=== PATIENT | female | born 1955 | race Caucasian/White ===

== ENCOUNTER → 2016-08-10 09:40 | Outpatient (CLI) | payer MEDICAID ==
[2015-05-15 11:39] VITALS: BMI 27.9
[~2016-08-10 09:40] MED LIST: ALBUTEROL2.5 MG/3 M INH; CLEOCIN HCL300 MG PO; DIFLUCAN100 MG PO; DULERA 100 MCG8.8 GM INH; FLUTICASONE PRO16 GM NS; HYDROCODONE-APA1 TAB PO; K-DUR20 MEQ PO; MUCINEX DM ER1 EAC1 PO; NEXIUM40 MG PO; OMNICEF300 MG PO; PRILOSEC20 MG PO; REGLAN10 MG PO; STERAPRED 5MG 125 MG PO; SYNTHROID112 MCG PO; TESSALON PERLE100 MG PO; ULTRAM50 MG PO; VALIUM10 MG PO; VENTOLIN HFA18 GM INH
== END | disposition home or self-care (01) ==
LOC: D.MRI 08-09 13:00
DX: M17.11 Unilateral primary osteoarthritis, right knee (principal)

== ENCOUNTER 2016-12-02 09:39 | Inpatient (IN) | payer MEDICAID ==
[~2016-12-02] VITALS: Ht 180.3 cm; Wt 104.8 kg
[2016-12-02 10:16] LABS: BASOPHILS 0.5 % (0-2); EOSINOPHILS 9.9 % (0-7); HEMATOCRIT 36.9 % (36.0-48.0); HEMOGLOBIN 11.4 g/dL (12-16); IMMATURE GRANULOCYTES 0.2 % (0-5); LYMPHOCYTES 17.3 % (15-50); MCH 30.2 pg (26.0-34.0); MCHC 30.9 g/dL (31.0-37.0); MCV 97.9 fL (80.0-100.0); MONOCYTES 5.5 % (2-11); NEUTROPHILS 66.6 % (40-80); PLATELET COUNT 366 10x3/uL (130-400); RBC 3.77 10x6/uL (4.00-5.40); RDW 14.1 % (11.5-14.5)
[2016-12-02 10:39] LABS: ALBUMIN 3.5 g/dL (3.4-5.0); ALKALINE PHOSPHATASE 69 U/L (46-116); ALT (SGPT) 14 U/L (10-68); CALC OSMOLALITY 277 mosm/kg (275-300); CALCIUM 9.5 mg/dL (8.5-10.1); CARBON DIOXIDE 32.1 mmol/L (21.0-32.0); CHLORIDE - SERUM 102 mmol/L (98-107); GLUCOSE 108 mg/dL (74-106); POTASSIUM - SERUM 4.1 mmol/L (3.5-5.1); PROTEIN - SERUM 7.7 g/dL (6.4-8.2); SODIUM 140 mmol/L (136-145); UREA NITROGEN 6 mg/dL (7-18); eGFR NON AFRICAN AMERICAN 60 mL/min (90-120)
[2016-12-02 10:42] LABS: TROPONIN-I < 0.017 ng/mL (0.000-0.060)
[2016-12-02] MEDS ORDERED: PHENERGAN25 M1 PO (13:33)
[2016-12-02 13:46] VITALS: BP 143/84; BMI 27.9
--- NOTE | 2016-12-02 15:47 | NUR ---
NOIFIED DREA BRANTELY OF PATIENT'S OXYGEN SATURATION BETWEEN 88%-91% ON 5L/MIN OXYGEN NASAL CANNULA. SEE NEW ORDERS.
[2016-12-02 16:00] VITALS: BP 141/76
--- NOTE | 2016-12-02 18:39 | NUR ---
PATIENT WOKE UP, STATED "I CAN'T BREATH." LEANING FORWARD IN THE BED, AUDIBLE EXPIRATORY WHEEZES, COUGHING, INCREASED RESPIRATIONS. OXYGEN LEVEL IS 94% ON 10L OXYMIZER. PAGED RESPIRATORY. PATIENT STATED "THIS HAPPENS EVERY TIME I FALL ASLEEP."
[2016-12-02 19:00] VITALS: BP 141/123
--- NOTE | 2016-12-02 19:46 | NUR ---
ASSESSMENT COMPLETE. UP WITH ASSIST TO BR.
--- NOTE | 2016-12-02 20:55 | NUR ---
HS MEDS GIVEN WITH FRESH ICE WATER. NORCO 1 TAB GIVEN FOR C/O PAIN.
--- NOTE | 2016-12-02 23:04 | NUR ---
UP WITH BENCH MACHINE OPERATOR TO BR.
[2016-12-03] VITALS: BP 150/86
--- NOTE | 2016-12-03 01:13 | NUR ---
NORCO 1 TAB GIVEN FOR C/O PAIN, PT REFUSING TO WEAR BIPAP, STATES THAT IT MAKES HER FEEL CLAUSTROPHOBIC. EXPLAINED TO PT THE IMPORTANCE OF KEEPING THE BIPAP ON, HOW IT WILL HELP HER BREATHE EASIER WHILE SHE IS SLEEPING, KEEP HER FROM PASSING OUT WHILE ASLEEP, SHE INFORMED ME EARLIER IN THE NIGHT THAT, THAT IS WHAT HAPPENS TO HER WHEN SHE GOES TO SLEEP AND "CANT BREATH" PT STILL INSISTED THAT THE BI PAP BE REMOVED. BIPAP REMOVED AND PLACED BACK ON OXIMIZER AT 10 LITER. UP WITH ASSIST TO BR, GAIT UNSTEADY.
--- NOTE | 2016-12-03 02:54 | NUR ---
RESTING WITH EYES CLOSED, RESPERATIONS EVEN, ON OXIMIXER AT 10 LITER, NO S/S DISTRESS NOTED.
--- NOTE | 2016-12-03 03:43 | NUR ---
ULTRAM 1 TAB GIVEN, RT AT BED SIDE, ABGS DRAWN. UP WITH ASSIST TO BR.
[2016-12-03 04:00] VITALS: BP 139/85
[2016-12-03 06:47] LABS: BASOPHILS 0.1 % (0-2); EOSINOPHILS 0 % (0-7); IMMATURE GRANULOCYTES 0.3 % (0-5); LYMPHOCYTES 10.8 % (15-50); MCH 30.3 pg (26.0-34.0); MCHC 31.4 g/dL (31.0-37.0); MCV 96.4 fL (80.0-100.0); MEAN PLATELET VOLUME 10.3 fL (7.4-10.4); MONOCYTES 2.5 % (2-11); NEUTROPHILS 86.3 % (40-80); PLATELET COUNT 348 10x3/uL (130-400); RBC 3.63 10x6/uL (4.00-5.40); RDW 13.9 % (11.5-14.5); WBC 11.4 10x3/uL (4.8-10.8)
[2016-12-03 07:02] LABS: ALBUMIN 3.2 g/dL (3.4-5.0); ANION GAP 9.5 mmol/L (8-16); BILIRUBIN - TOTAL 0.3 mg/dL (0.2-1.3); CALCIUM 9.4 mg/dL (8.5-10.1); CARBON DIOXIDE 31.8 mmol/L (21.0-32.0); MAGNESIUM - SERUM 1.9 mg/dL (1.8-2.4); PHOSPHOROUS 4.1 mg/dL (2.5-4.9); POTASSIUM - SERUM 4.3 mmol/L (3.5-5.1); PROTEIN - SERUM 7.3 g/dL (6.4-8.2)
--- NOTE | 2016-12-03 07:10 | NUR ---
RECEIVED REPORT. ASSUMED CARE OF PATIENT. CALL LIGHT WITHIN REACH. DENIES NEEDS. BIPAP AT BEDSIDE, NOT UTILIZED PATIENT STATES SHE IS CLAUSTROPHOBIC AND CAN'T USE IT. NO DISTRESS.
[2016-12-03 08:54] VITALS: BP 122/83
--- NOTE | 2016-12-03 09:41 | NUR ---
MEDICATED FOR PAIN AT THIS TIME. NO DISTRESS.
[2016-12-03 11:46] VITALS: Ht 180.3 cm; Wt 104.8 kg
[2016-12-03 12:00] VITALS: BP 113/64
--- NOTE | 2016-12-03 13:43 | NUR ---
MEDICATED FOR PAIN AT THIS TIME. NO DISTRESS.
[2016-12-03 16:59] VITALS: BP 110/70
--- NOTE | 2016-12-03 17:20 | NUR ---
SITTING IN BED. REQUESTING PAIN MED. INFORMED PATIENT STILL A LITTLE TOO EARLY FOR PAIN MEDS. CALL LIGHT JYOTSNA POSADAS. NO DISTRESS.
[2016-12-03 19:00] VITALS: BP 138/67
[2016-12-04] VITALS: BP 125/80
--- NOTE | 2016-12-04 00:57 | NUR ---
PT REST QUIETLY IN BED, EYE CLOSE, BED LOW, CALL LIGHT WITHIN REACH.
--- NOTE | 2016-12-04 03:30 | NUR ---
SPUTUMS SPECIMEN COLLECTED AND SENT TO LAB.
[2016-12-04 04:00] VITALS: BP 135/81
--- NOTE | 2016-12-04 04:37 | NUR ---
RESTING IN BED WITH NO DISTRESS. CPOC.
[2016-12-04 06:59] LABS: HEMATOCRIT 35.5 % (36.0-48.0); HEMOGLOBIN 11.2 g/dL (12-16); MCH 30.3 pg (26.0-34.0); MCHC 31.5 g/dL (31.0-37.0); MCV 95.9 fL (80.0-100.0); MEAN PLATELET VOLUME 10.4 fL (7.4-10.4); PLATELET COUNT 388 10x3/uL (130-400); RDW 14.1 % (11.5-14.5); WBC 21.7 10x3/uL (4.8-10.8)
--- NOTE | 2016-12-04 07:10 | NUR ---
RECEIVED REPORT. ASSUMED CARE OF PATIENT. LYING IN BED WITH NEBULIZER TREATMENT BEING ADMINISTERED. CALL LIGHT WITHIN REACH. DENIES NEEDS AT THIS TIME. PATIENT STATES THAT MD WAS HERE AND IS GOING TO ADJUST HER PAIN MEDICATION. DENIES NEEDS AT THIS TIME. NO DISTRESS.
[2016-12-04 07:18] LABS: LYMPHOCYTES 7 % (15-50); MONOCYTES 1 % (2-11); NEUTROPHILS 91 % (40-80); PLATELET ESTIMATE NORMAL
[2016-12-04 07:21] LABS: ALBUMIN 3.4 g/dL (3.4-5.0); ANION GAP 11.5 mmol/L (8-16); BILIRUBIN - TOTAL 0.17 mg/dL (0.2-1.3); CALCIUM 9.4 mg/dL (8.5-10.1); CARBON DIOXIDE 29.3 mmol/L (21.0-32.0); POTASSIUM - SERUM 3.8 mmol/L (3.5-5.1); PROTEIN - SERUM 7.5 g/dL (6.4-8.2)
[2016-12-04 08:00] VITALS: BP 145/78
[2016-12-04 12:00] VITALS: BP 121/76
--- NOTE | 2016-12-04 13:10 | NUR ---
22 GAUGE IV SITED TO LEFT AC X 1 STICK. GOOD BLOOD RETURN, EASY FLUSH. TOLERATED IV PLACEMENT WELL. TAPED, DATED AND SECURED. 20 GAUGE IV FOUND TO BE DISLODGED. CATHETER TIP INTACT. NO BLEEDING FROM SITE.
--- NOTE | 2016-12-04 13:27 | NUR ---
MEDICATED FOR PAIN AT THIS TIME. NO DISTRESS.
--- NOTE | 2016-12-04 15:19 | NUR ---
MEDICATED WITH TUSSENOX FOR NONSTOP COUGH AT THIS TIME. NO DISTRESS
[2016-12-04 16:00] VITALS: BP 115/71
--- NOTE | 2016-12-04 17:38 | NUR ---
MEDICATED FOR PAIN AT THIS TIME. NO DISTRESS.
[2016-12-04 19:00] VITALS: BP 125/71
--- NOTE | 2016-12-04 22:30 | NUR ---
EMPTY 500ML URINE FROM MEASURE HAT.
[2016-12-05] VITALS: BP 121/74
--- NOTE | 2016-12-05 03:43 | NUR ---
TOOL AND PRODUCTION PLANNER AT BEDSIDE FOR VS. NEEDS ADDRESSED AT THIS TIME. CALL LIGHT IN REACH. WILL CONT TO MONITOR.
[2016-12-05 04:00] VITALS: BP 126/68
--- NOTE | 2016-12-05 04:13 | NUR ---
PT REST IN BED,EYE CLOSE, BED LOW, CALL LIGHT WITHIN REACH.
[2016-12-05 05:49] LABS: BASOPHILS 0 % (0-2); EOSINOPHILS 0.1 % (0-7); HEMATOCRIT 35.7 % (36.0-48.0); HEMOGLOBIN 11.3 g/dL (12-16); IMMATURE GRANULOCYTES 0.4 % (0-5); LYMPHOCYTES 6.1 % (15-50); MCH 30.4 pg (26.0-34.0); MCHC 31.7 g/dL (31.0-37.0); MEAN PLATELET VOLUME 10.4 fL (7.4-10.4); MONOCYTES 2.6 % (2-11); NEUTROPHILS 90.8 % (40-80); PLATELET COUNT 387 10x3/uL (130-400); RBC 3.72 10x6/uL (4.00-5.40); RDW 14.5 % (11.5-14.5); WBC 19.3 10x3/uL (4.8-10.8)
[2016-12-05 06:24] LABS: ALBUMIN 3.3 g/dL (3.4-5.0); ANION GAP 12.8 mmol/L (8-16); BILIRUBIN - TOTAL 0.18 mg/dL (0.2-1.3); CALCIUM 9.2 mg/dL (8.5-10.1); CREATININE - SERUM 1.1 mg/dL (0.6-1.3); MAGNESIUM - SERUM 1.8 mg/dL (1.8-2.4); POTASSIUM - SERUM 3.8 mmol/L (3.5-5.1); PROTEIN - SERUM 7.4 g/dL (6.4-8.2)
[2016-12-05 07:52] VITALS: BP 143/80
--- NOTE | 2016-12-05 09:30 | NUR ---
PATIENT STATED SHE ONLY TAKES HER VALIUM BIDP.
[2016-12-05 11:56] VITALS: BP 157/76
--- NOTE | 2016-12-05 13:54 | NUR ---
IV ACCESS-20 GAUGE INSERTED IN RIGHT AC. KYLAH MOJICA RN
[2016-12-05 16:14] VITALS: BP 154/67
--- NOTE | 2016-12-05 16:14 | NUR ---
Patient Name: FLORINDA KANG Admission Status: ER Accout number: [id number] Admission Date: 12-02-2016 : 1955 Admission Diagnosis: Attending: NIRAV Current LOS: 3 Anticipated DC Date: Planned Disposition: Home Primary Insurance: MEDICAID [place] Discharge Planning Comments: CM MET WITH PATIENT TO ASSESS DISCHARGE PLANNING/NEEDS. PATIENT STATED HER PLAN IS TO RETURN HOME WITH HER ROOM MATE AND HER PAID CAREGIVER. SHE STATED THAT SHE HAS A GIRL COME IN 6 HOURS A DAY, EVERY DAY THROUGH [id number]. SHE SAID THAT HER ROOM MATE WILL BE HER TRANSPORT HOME, OSMAN MASON, . PATIENT STATED THAT SHE HAS MULTIPLE DME'S AT HOME AT THIS TIME AND SAID SHE WOULD LIKE TO GET A HOSPITAL BED. SHE STATED THAT DR OLIVEROS SENT AN ORDER TO [facility] FOR AN ELEVATED PILLOW SO THAT SHE IS NOT LAYING FLAT (SECONDARY TO REFLUX), INSTEAD OF A BED. EXPLAINED I WAS UNSURE IF SHE FET THE REQUIREMENTS FOR A BED, BUT WE WOULD CHECK INTO IT. SHE IS CURRENTLY ON OXYGEN AT 3 L N/C AND DENIES WEARING OXYGEN AT HOME. PATIENT MAY NEED A WALK TEST PRIOR TO DISCHARGE. PATIENT DENIES FURTHER NEEDS AT THIS TIME. CM WILL CONTINUE TO FOLLOW. Social Economist: Sun Valerio Is the patient Alert and Oriented? Yes * How many steps to enter\exit or inside your home? RAMP * PCP DR OLIVEROS * Pharmacy [facility] * Preadmission Environment Home with Family * ADLs Partial Dependent * Partial ADLs (Assistance needed) Bathing Transfers * Equipment Bedside Commode Nebulizer Rolling Walker Shower Chair * Other Equipment PATIENT SAID DR OLIVEROS HAS SENT AN ORDER TO [facility] FOR AN ELEVATION PILLOW SO THAT SHE CAN REMAIN UPRIGHT SHE SLEEPS. STATED THAT IT IS NOT IN YET * List name and contact numbers for known caregivers / representatives who currently or will assist patient after discharge: OSMAN MASON, ROOM MATE, * Community resources currently utilized Other * Please name any agencies selected above. DME: [facility] CAREGIVER 6 HOURS A DAY THROUGH [id number] * Additional services required to return to the preadmission environment? No * Can the patient safely return to the preadmission environment? Yes * Has this patient been hospitalized within the prior 30 days at any hospital? No
--- NOTE | 2016-12-05 16:24 | NUR ---
ON PATIENTS FACESHEET, SHE HAS A P.O. BOX ADDRESS LISTED. PATIENTS PHYSICAL ADDRESS IS [address] [place] [id number]
--- NOTE | 2016-12-05 18:30 | NUR ---
ASSISTED PATIENT TO THE BATHROOM, STANDBY ASSIST. PATIENT HAD A BOWEL MOVEMENT, THEN TURRET PUNCH PRESS OPERATOR ASSISTED HER BACK TO BED. OXYGEN ON VIA NASAL CANNULA AT 3L/MIN. D/C IV TO RIGHT AC WITH CATHETER INTACT. PATIENT DENIES NEEDS. NO SIGNS OF DISTRESS NOTED. BED IN LOWEST POSITION, CALL LIGHT IN REACH. BED RIALS UP X'S 2.
--- NOTE | 2016-12-05 19:40 | NUR ---
PT. SITTING ON THE SIDE OF HER BED FOR COMFORT. O2 VIA N/C AT 3L/MIN AND IV ANTIBIOTIC INFUSING VIA PUMP TO LT. A.C. WITHOUT ALARMS. ASSESSMENT COMPLETED. NO VOICED NEEDS AT THIS TIME AND HER CALL LIGHT IS WITHIN REACH.
--- NOTE | 2016-12-05 22:31 | NUR ---
PT. IN BED WITH HOB UP FOR COMFORT WITH O2 ON AT 3L/MIN VIA N/C AND NO S/S DISTRESS NOTED. NO VOICED NEEDS AND SHE HAS HER CALL LIGHT WITHIN REACH.
--- NOTE | 2016-12-06 02:06 | NUR ---
PT. IN BED WITH HOB UP FOR COMFORT WITH EYES CLOSED AND RESP. EVEN. O2 ON AT 3L/MIN VIA N/C WITHOUT ANY S/S DISTRESS AND HER IV SITE HAS BEEN LOCKED UNTIL THE NEXT ANTIBIOTIC IS DUE. CALL LIGHT REMAINS WITHIN REACH.
[2016-12-06 04:00] VITALS: BP 116/71
--- NOTE | 2016-12-06 04:10 | NUR ---
PT. IN BED WITH HOB UP FOR COMFORT WITH EYES CLOSED AND RESP. EVEN. O2 VIA N/C AT 3L/MIN WITHOUT ANY S/S DISTRESS. WILL CONTINUE TO MONITOR. PT. CONTINUE TO HAVE HER CALL LIGHT WITHIN REACH.
[2016-12-06 05:38] LABS: BASOPHILS 0 % (0-2); EOSINOPHILS 0 % (0-7); HEMATOCRIT 36.1 % (36.0-48.0); HEMOGLOBIN 11.5 g/dL (12-16); IMMATURE GRANULOCYTES 0.7 % (0-5); LYMPHOCYTES 6.2 % (15-50); MCH 30.5 pg (26.0-34.0); MCHC 31.9 g/dL (31.0-37.0); MCV 95.8 fL (80.0-100.0); MEAN PLATELET VOLUME 10.9 fL (7.4-10.4); MONOCYTES 3.8 % (2-11); NEUTROPHILS 89.3 % (40-80); PLATELET COUNT 353 10x3/uL (130-400); RBC 3.77 10x6/uL (4.00-5.40); RDW 14.5 % (11.5-14.5); WBC 16.6 10x3/uL (4.8-10.8)
[2016-12-06 06:11] LABS: ALBUMIN 3.3 g/dL (3.4-5.0); ANION GAP 14.2 mmol/L (8-16); BILIRUBIN - TOTAL 0.2 mg/dL (0.2-1.3); CALCIUM 9.2 mg/dL (8.5-10.1); CARBON DIOXIDE 29.5 mmol/L (21.0-32.0); POTASSIUM - SERUM 3.7 mmol/L (3.5-5.1); PROTEIN - SERUM 7.2 g/dL (6.4-8.2)
--- NOTE | 2016-12-06 07:00 | NUR ---
RECEIVED REPORT. ASSUMED CARE OF PATIENT. SITTING UP IN BED, ATTENTION TOWARD TELEVISION. STATES SHE SLEPT WELL LAST NOC. RESP EVEN AND UNLABORED. NO DISTRESS. CALL LIGHT WITHIN REACH.
[2016-12-06 08:00] VITALS: BP 181/73
--- NOTE | 2016-12-06 10:04 | NUR ---
MEDICATED FOR PAIN AND NAUSEA AT THIS TIME. NO DISTRESS.
[2016-12-06 12:00] VITALS: BP 109/61
--- NOTE | 2016-12-06 14:00 | NUR ---
MEDICATED FOR PAIN. NO DISTRESS.
[2016-12-06 16:00] VITALS: BP 120/70
--- NOTE | 2016-12-06 18:05 | NUR ---
MEDICATED FOR PAIN. NO DISTRESS.
[2016-12-06 19:00] VITALS: BP 133/78
--- NOTE | 2016-12-06 19:30 | NUR ---
PT IN BED WITH HOB UP FOR COMFORT. WATCHING TV. ALERT & ORIENTED. PT USES BSC. 02 @ 3L VIA N/C. TELEMETRY. ELECTROLYTE PROTOCOL. LEFT AC SALINE LIC. PT HAS NO COMPLAINTS AT THIS TIME. BED IN LOWEST POSITION AND CALL LIGHT WITHIN REACH.
[2016-12-07] VITALS: BP 142/83
--- NOTE | 2016-12-07 01:29 | NUR ---
PT IN BED WT HOB UP FOR COMFORT. EYES CLOSED. CHEST RISING AND FALLING. BED IN LOWEST POSITION AND CALL LIGHT WITHIN REACH.
[2016-12-07 04:00] VITALS: BP 147/92
[2016-12-07 06:05] LABS: BASOPHILS 0 % (0-2); EOSINOPHILS 0.1 % (0-7); HEMATOCRIT 37.9 % (36.0-48.0); HEMOGLOBIN 11.8 g/dL (12-16); IMMATURE GRANULOCYTES 0.8 % (0-5); LYMPHOCYTES 5.1 % (15-50); MCH 29.7 pg (26.0-34.0); MCHC 31.1 g/dL (31.0-37.0); MCV 95.5 fL (80.0-100.0); MEAN PLATELET VOLUME 10.6 fL (7.4-10.4); MONOCYTES 4.2 % (2-11); NEUTROPHILS 89.8 % (40-80); PLATELET COUNT 376 10x3/uL (130-400); RBC 3.97 10x6/uL (4.00-5.40); RDW 14.2 % (11.5-14.5); WBC 17.1 10x3/uL (4.8-10.8)
[2016-12-07 06:23] LABS: ALBUMIN 3.5 g/dL (3.4-5.0); ANION GAP 13.7 mmol/L (8-16); BILIRUBIN - TOTAL 0.26 mg/dL (0.2-1.3); CALCIUM 9.2 mg/dL (8.5-10.1); CARBON DIOXIDE 29.8 mmol/L (21.0-32.0); CREATININE - SERUM 1.1 mg/dL (0.6-1.3); POTASSIUM - SERUM 3.5 mmol/L (3.5-5.1); PROTEIN - SERUM 7.3 g/dL (6.4-8.2)
[2016-12-07 07:00] VITALS: BP 138/81
--- NOTE | 2016-12-07 08:15 | NUR ---
PT RESTING IN ED WITH EYES OPEN CALL LIGHT IN REACH NO PROBLEMS WILL MONITER
--- NOTE | 2016-12-07 10:18 | NUR ---
RESP UL ON . C/O PAIN.. NURSE NOTIDIED. WILL MONITOR.
[2016-12-07 12:00] VITALS: BP 146/78
[2016-12-07 16:00] VITALS: BP 143/70
--- NOTE | 2016-12-07 17:41 | NUR ---
PT RESTING IN BED WITH EYES OPEN CALL LIGHT IN REACH NO PROBLEMS WILL MONITER
[2016-12-07 19:00] VITALS: BP 132/81
--- NOTE | 2016-12-07 20:01 | NUR ---
PT AWAKE, ALERT, ORIENTED, IV IN LEFT AC HAS INFILTRATED, CAUSING DISCOMFORT, BURNING, STINGING, MINIMAL REDNESS. IV REMOVED WITH CATH TIP INTACT. WILL RESITE. PT STATES SHE IS SOME BETTER FROM INITIAL ADMISSION DATE BUT PAIN IS GREAT. CONTINUE TO MONITOR CLOSELY.
[2016-12-08] VITALS: BP 153/84
--- NOTE | 2016-12-08 00:59 | NUR ---
RAOUL DAVID ATTEMPTED TO RESITE PT X 3 WITH GREAT DIFFICULTY. PT STATES SHE IS A VERY DIFFICULT STICK R/T ROLLING VEINS AND STATES SHE IS MILDLY DEHYDRATED WELL. WILL CONSULT VASCULAR NURSE FOR IV PLACEMENT IN THE AM.
[2016-12-08 04:00] VITALS: BP 137/83
[2016-12-08 08:57] VITALS: BP 135/75
--- NOTE | 2016-12-08 09:59 | NUR ---
IV ACCESS-22 GAUGE INSERTED IN LEFT HAND FOR ACCESS. KYLAH MOJICA RN
--- NOTE | 2016-12-08 10:33 | NUR ---
PT C/O CHEST PRESSURE AND TIGHTNESS. TELEMETRY RUNNING 180 AFIB. STAT EKG ORDERED AND DONE PER PROTOCOL ALONG WITH CARDIAC ENZYMES. PAGED ATTENDING AND JOE LOZANO APN WANTED CARDIAC CONSULT WHICH WAS ALSO ORDERED. EKG SHOWED UNCONTROLLED A.FIB WITH RVR. PT UNAWARE OF THIS AND TEACHING WAS PROVIDED. PROVIDED PT WITH HER PRN PAIN MEDICATION AND CALMED HER DOWN IN BED AND SHE STATES SHE IS COMFORTABLE. WILL CTM.
[2016-12-08 11:55] LABS: CKMB 1.7 U/L (0.0-3.6); CREATINE KINASE 97 UL (21-215); TROPONIN-I < 0.017 ng/mL (0.000-0.060)
[2016-12-08 12:13] VITALS: BP 120/71
--- NOTE | 2016-12-08 12:15 | NUR ---
PROVIDED PT WITH NEW LASIX AND BETAPACE AND TEACHING WAS PROVIDED. TELEMETRY STILL UNCONTROLLED AFIB @137 WILL CTM CLOSELY.
[2016-12-08 15:59] VITALS: BP 111/58
[2016-12-08 16:37] LABS: CKMB 1.4 U/L (0.0-3.6); CREATINE KINASE 64 UL (21-215); TROPONIN-I < 0.017 ng/mL (0.000-0.060)
[2016-12-08 19:00] VITALS: BP 119/62
--- NOTE | 2016-12-08 19:48 | NUR ---
PT AWAKE, ALERT, ORIENTED, SITTING UP IN BED. PT STATES SHE IS STILL HAVING CHEST PAIN/PRESSURE, BUT ONLY 50% COMPARED TO EARLIER. PT STATES SHE HAS INTRACTABLE GENERALIZED PAIN UNCONTROLLED WITH PRN PAIN MEDS. WILL CONTINUE TO MONITOR CLOSELY.
[2016-12-08 22:32] LABS: CKMB 0.9 U/L (0.0-3.6); CREATINE KINASE 74 UL (21-215); TROPONIN-I < 0.017 ng/mL (0.000-0.060)
[2016-12-09 04:00] VITALS: BP 111/58
--- NOTE | 2016-12-09 05:53 | NUR ---
PT AWAKE, ALERT, ORIENTED, REQUESTING HER PRN PAIN MEDICATION. PTS DEMEANOR HAS BEEN BETTER THIS SHIFT. SHE IS NOT DEPRESSES OR TEARFUL SHE WAS MY LAST SHIFT WITH HER. PT DENIES ANY OTHER ACUTE NEEDS. CONTINUE TO MONITOR.
--- NOTE | 2016-12-09 08:00 | NUR ---
INTRODUCED MYSELF TO PT PRIMARY RN FOR TODAYS SHIFT. PT IS A&O RESTING QUIETLY SITTING UP ON EDGE OF THE BED. PT STATES SHE HAD A BETTER NIGHT AND IS STARTING TO FEEL BETTER OVERALL BUT STILL SLIGHT CHEST DISCOMFORT HOWEVER ALL CARDIAC ENZYMES WERE NEGATIVE AND EKG IS NORMAL SINUS NOW. SHIFT ASSESSMENT COMPLETED PT DENIES ANY CURRENT NEEDS AT THIS TIME. CL IN REACH, BED IN LOWEST, SIDE RAILS X2. WILL CTM.
[2016-12-09 08:57] VITALS: BP 134/68
--- NOTE | 2016-12-09 10:33 | NUR ---
PT WANTING TO AMBULATE IN [place] WITH HER ROLLATOR WALKER. PT CURRENTLY ON 3L NC WITH PULSE OX 99% TAPERED PT DOWN TO 1.5L AND SHE IS HOLDING UP WELL. PT AMBULATED AROUND NURSES STATION X2 LAPS WITHOUT ANY DIFFICULTIE IN BREATHING AND STATES "I AM FEELING BETTER"
[2016-12-09 12:00] VITALS: BP 99/54
--- NOTE | 2016-12-09 12:53 | EC ---
PATIENT:FLORINDA KANG DATE OF SERVICE: 12/02/16 SEX: F MEDICAL RECORD: [id number] DATE OF : [birth year] LOCATION:D.M2 D.213 AGE OF PATIENT: 61 ADMISSION DATE: 12/02/16 REFERRING PHYSICIAN: INTERPRETING PHYSICIAN: NAVID RAMIREZ MD ECHOCARDIOGRAM REPORT ECHO CHARGES 4 ECHO COMPLETE CLINICAL DIAGNOSIS: SOB/EDEMA HX COPD ECHOCARDIOGRAPHIC MEASUREMENTS (adult normal given) AC root (d.<3.7cm) 2.5 LV Septum d (<1.2 cm> 1.3 Valve Excursion 1.1 LV Septum (systole) 1.6 Left Atria (s.<4.0cm> 3.5 LVPW d(<1.2cm) 1.3 RV (d.<2.3cm) 3.3 LVPW (sytole) 1.6 LV diastole(<5.6CM) 4.6 MV E-F(>70mm/sec) LV systole 3.1 LVOT Diameter 2.0 MV exc.(>10mm) Est.ejection fraction (50-75%) Pericardial Effusion N DOPPLER: LVIT A 74.0 E 93.0 LA RVSP 17 LVOT 97 AOP1/2T Asc. Ao 136 RVOT RA PA AV Gradient Peak 7.42 AV Mean 3.38 AV Area 2.3 MV Gradient Peak 3.75 MV Mean 1.83 MV Area COMMENTS: Dog Beautician: Sariah WETZEL Explosive Ordnance Specialist:Michele Valera TAPE# PACS DATE OF SERVICE: 12/03/2016 Adequate 2D echo, color flow and spectral Doppler and M-Mode. Borderline LVH, LV internal dimensions. Normal wall motion. Overall, LV function normal. EF 50% or better. Aortic valve is tricuspid. No evidence of stenosis by Doppler interrogation. The left atrium is normal at 3.5 cm. The mitral valve shows no prolapse. Trace MR. Right-sided chamber is grossly normal. Trace TR. TRANSINT:[id number] Voice Confirmation ID: [id number] DOCUMENT ID: [id number] ECHOCARDIOGRAM REPORT [id number] FLORINDA KANG NAVID RAMIREZ MD at 1253 CC: [id number] DICTATION DATE: 12/04/16 1023 UNIT DIRECTOR: 12/04/16 1150 ADM IN [facility] [address] [facility], [facility]
--- NOTE | 2016-12-09 12:53 | CN ---
PATIENT NAME:FLORINDA KANG MEDICAL RECORD: [id number] : 57 LOCATION:D. D.2135 ADMIT DATE: 12/02/16 ACCOUNT: [id number] CONSULTING PHYSICIAN: NAVID RAMIREZ MD REFERRING PHYSICIAN: BRYN ASCENCIO MD DATE OF CONSULTATION: 12/08/2016 HISTORY OF PRESENT ILLNESS: A 61-year-old lady with longstanding history of obstructive pulmonary disease followed by Dr. Pierson in [place], admitted with COPD exacerbation. She has been receiving updrafts, steroids, antibiotics, has improved somewhat, had atrial fibrillation earlier today with rapid ventricular response, currently back in sinus, in retrospect, she has had a history of atrial fibrillation in the past. We are asked to see her concerning her cardiovascular status. PAST MEDICAL HISTORY: Includes: 1. History of obstructive pulmonary disease. 2. Gastroesophageal reflux disease. ALLERGIES: IBUPROFEN, CELEBREX. SOCIAL HISTORY: Ex-smoker, lives in [place], has trouble with ADLs on occasion. MEDICATIONS: Prior to admit include Phenergan 25 p.o. q. day, albuterol 1 puff q.4, Valium 10 b.i.d., tramadol 50 t.i.d. p.r.n., hydrocodone 1 p.o. q.4 p.r.n., potassium supplementation, Prilosec 20 q. day, Synthroid 112 mcg q. day. REVIEW OF SYSTEMS: The patient reports easy bruising but reports no swollen glands. The patient reports no fever, no night sweats, no significant weight gain, no significant weight loss. No significant exercise tolerance. The patient reports no dry eyes, no irritation, no vision change. Patient reports no difficulty hearing and no ear pain. Patient reports no frequent nose bleeds or nose and sinus problems. Patient reports on arm pain on exertion. No shortness of breath while lying down. No history of heart murmur. Patient reports no cough, no wheezing or coughing up blood. Patient reports no abdominal pain, no vomiting. Normal appetite. No diarrhea and not vomiting blood. No nausea and no constipation. Patient reports no incontinence. No difficulty urinating. No hematuria. No increased frequency. Patient reports no muscle aches. No weakness, no arthralgias, no back pain. No swelling of the extremities. Patient reports no abnormal mole, no jaundice, no rashes. Reports no loss of consciousness. No weakness and no numbness. No seizures, dizziness, or headaches. The patient reports no depression, no sleep disturbance, feeling safe in a relationship and no alcohol abuse. Patient reports on fatigue. Reports no runny nose or sinus pressure. No itching, no hives, and no frequent sneezing. PHYSICAL EXAMINATION: GENERAL: Chronically ill-appearing female, in no acute distress. VITAL SIGNS: 120/71, pulse currently 96 and regular. HEENT: Normocephalic, atraumatic. NECK: No bruits noted. HEART: Distant due to lung noise, currently regular. LUNGS: Prolonged expiratory phase with inspiratory and expiratory wheezes. ABDOMEN: Soft, nontender. EXTREMITIES: 1+ edema, 2+ pulses. CONSULT REPORT [id number] FLORINDA KANG NEUROLOGIC: Grossly intact. IMPRESSION: Atrial fibrillation, multifactorial, currently in sinus rhythm on sotalol. Baseline ECG shows no significant myopathy or valvular pathology, suspect could treat this for approximately 4 weeks, no indication for NOAC at this time. TRANSINT:[id number] Voice Confirmation ID: [id number] DOCUMENT ID: [id number] NAVID RAMIREZ MD at 1253 CC: [id number] DICTATION DATE: 12/08/16 1359 CARPENTER LABOR SUPERVISOR: 12/09/16 0146 [facility] [place] [id number] [place] [address]
[2016-12-09 17:13] VITALS: BP 117/50
[2016-12-09 19:00] VITALS: BP 108/65
--- NOTE | 2016-12-09 21:04 | NUR ---
PT AWAKE, ALERT, ORIENTED, DENIES ANY NEEDS AT THIS TIME. CONTINUE TO MONITOR CLOSELY.
--- NOTE | 2016-12-10 03:42 | NUR ---
PT RESTING COMFORTABLY AT THIS TIME, IN NO ACUTE DISTRESS. CONTINUE TO MONITOR CLOSELY.
[2016-12-10 04:00] VITALS: BP 134/75
--- NOTE | 2016-12-10 07:54 | NUR ---
AM ROUNDS - PT IS AWAKE IN BED C/O 10/10 GENERAL PAIN. CALL VALENZUELA IN USE/REACH. YELLOW BAND ON. NON SKID SOCKS ON. SIDE RAILS UP X2. NO FUTHER NEEDS AT THIS TIME. WILL CONTINUE TO MONITOR
[2016-12-10 09:56] VITALS: BP 124/58
[2016-12-10 11:07] VITALS: BP 119/62
[2016-12-10] MEDS ORDERED: FLORAJEN3 CAPS460 MG PO ×2 (12:04→12:07)
[2016-12-10] MEDS ORDERED: BETAPACE 80 MG80 MG PO (12:04)
[2016-12-10] MEDS ORDERED: ALBUTEROL2.5 MG/3 M INH (12:04)
[2016-12-10] MEDS ORDERED: DALIRESP500 MCG PO (12:04)
[2016-12-10] MEDS ORDERED: CEFTIN PO (12:07)
[2016-12-10] MEDS ORDERED: PREDNISONE10 MG PO (12:07)
--- NOTE | 2016-12-10 13:39 | NUR ---
PT AWAKE IN BED. NO NEEDS AT THIS TIME. MALE VISITOR AT BEDSIDE. WILL CONTINUE TO MONITOR
--- NOTE | 2016-12-10 14:24 | NUR ---
D/C - VERBAL AND WRITTEN INSTRUCTIONS GIVEN TO PT. IV TO RIGHT HAND D/C. CAH TIP INTACT. MONITOR TAKEN OFF. PT LEFT FLOOR VIA WHEELCHAIR BY STAFF MEMBER. WILL D/C
--- NOTE | 2016-12-12 10:11 | CN ---
PATIENT NAME:FLORINDA LEE MEDICAL RECORD: [id number] : 57 LOCATION:D. D.2135 ADMIT DATE: 12/02/16 ACCOUNT: [id number] CONSULTING PHYSICIAN: SAIRA HOLDER MD REFERRING PHYSICIAN: BRYN ASCENCIO MD DATE OF CONSULTATION: 12/08/2016 DIAGNOSES: 1. Atrial fibrillation, new onset. 2. Chronic obstructive pulmonary disease. HISTORY OF PRESENT ILLNESS: Mrs. Lee presents with COPD exacerbation and shortness of breath. Initially was in sinus rhythm, was reverted to atrial fibrillation this morning with rapid ventricular response, heart rate is in the 130s. She can really not feel the palpitation. She has not had any chest pain or chest discomfort with this. She has no history of atrial fibrillation of that she knows, no cardiovascular issues. She had an echocardiogram done here that showed a normal ejection fraction of 55%. Left atrium was 3.5 cm. No significant valvular disease. PHYSICAL EXAMINATION: GENERAL APPEARANCE: Well-nourished, well-developed, appears stated age. Level of distress, comfortable. PSYCHIATRIC: Mental status, alert, normal affect. Orientation, oriented to time, place and person. EYES: Lids and conjunctiva, noninjected. No discharge, no pallor. ENT: Lips, teeth, gums, normal dentition. Oropharynx, no cyanosis, no pallor. NECK: Carotid arteries, bilateral normal upstroke, no bruits, no thrills. JUGULAR VEINS: No jugular venous pressure or distention. CERVICAL LYMPH NODES: Nontender, nonenlarged. THYROID: Not enlarged. Nontender. No nodules. LUNGS: Respiratory effort, unlabored. CHEST: Normal curvature. No thoracic deformity. No chest wall tenderness. Percussion, resonant. Auscultation, clear. No wheezes, no rales, no rhonchi. CARDIOVASCULAR: Heart rate is irregularly irregular in atrial fibrillation with rapid ventricular response in the 130s. EXTREMITIES: No cyanosis, no edema. Peripheral pulses, full and equal in all extremities, except as noted. No bruits appreciated. ABDOMEN: Soft, nondistended. Normal aorta. No bruit. Nontender. No masses. Liver, nontender, no hepatomegaly. Spleen, nontender, no splenomegaly. MUSCULOSKELETAL: No joint tenderness. No joint swelling. No erythema. NEUROLOGICAL: Normal gait, normal strength, normal tone. SKIN: Warm and dry. OVERALL IMPRESSION: Atrial fibrillation, most likely secondary to the pulmonary disease. We will start her on sotalol 120 mg b.i.d. Hopefully, this will restore sinus rhythm. TRANSINT:[id number] Voice Confirmation ID: [id number] DOCUMENT ID: [id number] CONSULT REPORT [id number] FLORINDA LEE JEFFREY MD at 1011 CC: [id number] DICTATION DATE: 12/08/16 1153 CUT LACE MACHINE OPERATOR: 12/08/16 2158 DIS IN 12/10/16 [facility] [address] [place] [address]
== END 2016-12-10 14:42 | disposition home or self-care (01) | DRG 189 ==
LOC: D.ER 09:39 → D.M2 11:47
PROVIDERS: Emergency Medicine; Family Medicine Adult Medicine; Internal Medicine Pulmonary Disease; ADMIT Family Medicine
DX: J96.22 Acute and chronic respiratory failure with hypercapnia (principal); J18.9 Pneumonia, unspecified organism; J44.1 Chronic obstructive pulmonary disease with (acute) exacerbation; J44.0 Chronic obstructive pulmonary disease with (acute) lower respiratory infection; J98.11 Atelectasis; J96.21 Acute and chronic respiratory failure with hypoxia; E87.6 Hypokalemia; E03.9 Hypothyroidism, unspecified; K21.9 Gastro-esophageal reflux disease without esophagitis; F41.8 Other specified anxiety disorders; J30.9 Allergic rhinitis, unspecified; M81.0 Age-related osteoporosis without current pathological fracture; G89.29 Other chronic pain; M54.9 Dorsalgia, unspecified; D64.9 Anemia, unspecified; Z86.73 Personal history of transient ischemic attack (TIA), and cerebral infarction without residual deficits

== ENCOUNTER 2017-06-07 17:39 | Inpatient (IN) | payer MEDICAID ==
[~2017-06-07] VITALS: Ht 180.3 cm; Wt 87.9 kg
[~2017-06-07 17:39] MED LIST changes: +BETAPACE 80 MG80 MG PO; +CEFTIN PO; +DALIRESP500 MCG PO; +FLORAJEN3 CAPS460 MG PO; +PHENERGAN25 M1 PO; +PREDNISONE10 MG PO
[2017-06-07 18:40] LABS: BASOPHILS 0.2 % (0-2); EOSINOPHILS 5.5 % (0-7); HEMATOCRIT 44.3 % (36.0-48.0); HEMOGLOBIN 13.2 g/dL (12-16); IMMATURE GRANULOCYTES 0.3 % (0-5); LYMPHOCYTES 13.6 % (15-50); MCH 28.2 pg (26.0-34.0); MCHC 29.8 g/dL (31.0-37.0); MCV 94.7 fL (80.0-100.0); MONOCYTES 8.1 % (2-11); NEUTROPHILS 72.3 % (40-80); RBC 4.68 10x6/uL (4.00-5.40); WBC 11.3 10x3/uL (4.8-10.8)
[2017-06-07 18:52] LABS: PLATELET COUNT 281 10x3/uL (130-400)
[2017-06-07 19:05] LABS: ALBUMIN 2.8 g/dL (3.4-5.0); ALKALINE PHOSPHATASE 123 U/L (46-116); ALT (SGPT) 12 U/L (10-68); BILIRUBIN - TOTAL 0.12 mg/dL (0.2-1.3); CALC OSMOLALITY 277 mosm/kg (275-300); CALCIUM 8.5 mg/dL (8.5-10.1); CHLORIDE - SERUM 98 mmol/L (98-107); CREATININE - SERUM 0.8 mg/dL (0.6-1.3); GLUCOSE 128 mg/dL (74-106); POTASSIUM - SERUM 3.4 mmol/L (3.5-5.1); PROTEIN - SERUM 7.4 g/dL (6.4-8.2); SODIUM 140 mmol/L (136-145); UREA NITROGEN 5 mg/dL (7-18); eGFR NON AFRICAN AMERICAN 77 mL/min (90-120)
[2017-06-07 19:14] LABS: CREATINE KINASE 161 UL (21-215); PRO BNP 316 pg/mL (0-125)
[2017-06-07 19:19] LABS: TROPONIN-I < 0.017 ng/mL (0.000-0.060)
--- NOTE | 2017-06-07 22:15 | NUR ---
PT ARRIVED IN ROOM VIA STRETCHER, PLACED ON MONITOR, PT WHEEZING/CRACKLES NOTED IN B/L UPPER LOBES, DIMNISHED IN B/L LOWER LOBES, HR-IRREGUAR, EKG OBTAINED, DR. GUZMAN NOTIFIED, NEW ORDERS RECIVED, AFIB ON MONITOR, PT ON 50% BIPAP WITH 95% O2 SAT. ABDOMEN IS SOFT AND ROUND WITH ACTIVE BS, PATENT F/C WITH C/Y UOP, EDEMA NOTED IN ALL EXTREMETIES, ALL PPP, WILL CON'T TO MONITOR
[2017-06-07 23:15] VITALS: BP 152/94
[2017-06-07 23:19] VITALS: BP 152/94; BMI 28.0
[2017-06-07 23:30] VITALS: BP 146/88
[2017-06-08] VITALS (26 sets, daily range): BP systolic 87–145; BP diastolic 50–82; BMI 27.8
--- NOTE | 2017-06-08 01:20 | NUR ---
PT RESTING COMFORTABLY AT THIS TIME, DENIES ANY NEEDS OR WANTS, REPOSITIONED FOR COMFORT, WILL CON'T TO MONITOR
--- NOTE | 2017-06-08 03:08 | NUR ---
RAD IN ROOM FOR DAILY CXR, PT TOLERATED WELL
--- NOTE | 2017-06-08 05:38 | NUR ---
PT NAUSEATED AT THIS TIME, PRN ZOFRAN GIVEN
[2017-06-08 06:35] LABS: BASOPHILS 0.2 % (0-2); HEMATOCRIT 42.9 % (36.0-48.0); HEMOGLOBIN 12.7 g/dL (12-16); IMMATURE GRANULOCYTES 0.2 % (0-5); LYMPHOCYTES 10.1 % (15-50); MCH 27.9 pg (26.0-34.0); MCHC 29.6 g/dL (31.0-37.0); MCV 94.1 fL (80.0-100.0); MONOCYTES 6.6 % (2-11); NEUTROPHILS 81.9 % (40-80); PLATELET COUNT 290 10x3/uL (130-400); RBC 4.56 10x6/uL (4.00-5.40); RDW 15.9 % (11.5-14.5); WBC 11.2 10x3/uL (4.8-10.8)
[2017-06-08 07:08] LABS: CALC OSMOLALITY 279 mosm/kg (275-300); CALCIUM 8.5 mg/dL (8.5-10.1); CHLORIDE - SERUM 97 mmol/L (98-107); CKMB 1.8 U/L (0.0-3.6); CREATINE KINASE 95 UL (21-215); CREATININE - SERUM 0.8 mg/dL (0.6-1.3); GLUCOSE 112 mg/dL (74-106); MAGNESIUM - SERUM 1.7 mg/dL (1.8-2.4); POTASSIUM - SERUM 3.4 mmol/L (3.5-5.1); SODIUM 141 mmol/L (136-145); TROPONIN-I < 0.017 ng/mL (0.000-0.060); UREA NITROGEN 6 mg/dL (7-18); eGFR NON AFRICAN AMERICAN 77 mL/min (90-120)
[2017-06-08 07:10] LABS: CARBON DIOXIDE 41.3 mmol/L (21.0-32.0)
--- NOTE | 2017-06-08 10:02 | NUR ---
PT USING CALL LIGHT. NAUSEA AND VOMITING. BIPAP TAKEN OFF AND OXYMIZER PLACED. PT COUGH GAGS AND SPITS UP CLEAR SPUTUM OR EMESIS. ORIENTED, STATES I DO NOT WANT TO . TALKS ABOUT BEING ON VENT AT [facility] 6 MO AGO. ASKING FOR PAIN MEDS. ZOFRAN GIVEN AND NORCO 10. B FRIEND ENTERS, DR DUNAWAY ENTERS AT BS. SPEAKS TO B FRIEND AND PT RE: POC.
--- NOTE | 2017-06-08 11:46 | NUR ---
pt sob with oxymizer. mouth care done and placed back on bipap after norco given. pt mike well. spo2 94% and resp easy.
--- NOTE | 2017-06-08 17:26 | NUR ---
PT TAKEN OFF OF BIPAP APPROX Q4H AND GIVEN A SIP OF WATER AND MOUTH CARE. SPO2 DROPS AFTER 4 TO 5 MIN OF OXYMIZER 10L.
--- NOTE | 2017-06-08 19:30 | NUR ---
REPORT RECIEVED. ASSESSMENT COMPLETED. SEE FLOW SHEET FOR DETAILS. PT RESTIN WITH BIPAP ON. REMOVED THE FORE ARM IV. WILL COTINUE TO MONITOR.
--- NOTE | 2017-06-08 20:14 | NUR ---
PT VOMITING PRN MEDS GIVEN WILL COTINUE TO MONITOR.
--- NOTE | 2017-06-08 21:00 | NUR ---
N/V HAS RESIDED. PT RESTING WITH COMFORT WITH NO SIGNS OF DISTRESS. WILL CONTINUE TO MONITOR.
--- NOTE | 2017-06-08 23:00 | NUR ---
REASSESSMENT COMPLETED. SEE FLOW SHEET FOR FURTHER DETAILS. PT RESTING WITH NO SIGNS OF DISTRESS CALL LIGHT IN REACH WILL CONTINUE TO MONITOR.
[2017-06-09] VITALS (24 sets, daily range): BP systolic 91–118; BP diastolic 55–74; Ht 180.3 cm; Wt 87.9 kg
--- NOTE | 2017-06-09 01:00 | NUR ---
PT RESTING WITH NO DISTRESS NOTED. CALL LIGHT IN REACH WILL CONTINUE TO MONITOR.
--- NOTE | 2017-06-09 03:00 | NUR ---
REASSESSMENT COMPLETED. NO ACUTE CHNAGES AT THIS TIME. SEE FLOW SHEET FOR FURTHER DETAILS. PT POSITIONED FOR COMFORT AND GAVE A BREAK FROM BIPAP THE PLACED BACK ON. WILL CONTINUE TO MONITOR PT.
--- NOTE | 2017-06-09 05:00 | NUR ---
PT RESTING WITH NO SIGNS OF DISTRESS. CALL LIGHT IN REACH WILL CONTINUE TO MONITOR PT.
[2017-06-09 06:01] LABS: BASOPHILS 0 % (0-2); EOSINOPHILS 0 % (0-7); HEMATOCRIT 40.3 % (36.0-48.0); HEMOGLOBIN 12.2 g/dL (12-16); IMMATURE GRANULOCYTES 0.2 % (0-5); LYMPHOCYTES 10.2 % (15-50); MCH 27.6 pg (26.0-34.0); MCHC 30.3 g/dL (31.0-37.0); MCV 91.2 fL (80.0-100.0); MEAN PLATELET VOLUME 11.8 fL (7.4-10.4); MONOCYTES 2.3 % (2-11); NEUTROPHILS 87.3 % (40-80); PLATELET COUNT 284 10x3/uL (130-400); RBC 4.42 10x6/uL (4.00-5.40); WBC 9.1 10x3/uL (4.8-10.8)
[2017-06-09 06:36] LABS: ANION GAP 11.6 mmol/L (8-16); CARBON DIOXIDE 34.2 mmol/L (21.0-32.0); POTASSIUM - SERUM 3.8 mmol/L (3.5-5.1)
--- NOTE | 2017-06-09 09:55 | NUR ---
PATIENT OFF OF BIPAP FOR APPROX. 15 MIN FOR MEDICATION AND REST. DESAT TO 86% AND BIPAP BACK IN PLACE WITH PREVIOUS SETTINGS
--- NOTE | 2017-06-09 14:09 | NUR ---
Unable to assess dc plans/needs - patient on Bipap, no family present.
--- NOTE | 2017-06-09 19:00 | NUR ---
REPORT RECIEVED, SHIFT ASSESSMENT COMPLETE, PLEASE SEE FLOW SHEETS FOR DETAILS. C/O PAIN 10/ BACK/NECK (CHRONIC-STATES ACHES) AMD ABDOMEN (CRAMPS) WILL GIVE PAIN MEDS PER ORDERS. DENEIS ANY OTHER NEEDS ATT. BED LOW AND LOCKED, CALL LIGHT IN REACH. VSS, WILL CPOC.
--- NOTE | 2017-06-09 21:00 | NUR ---
PT REQUESTED PAIN PILL, STATED PAIN IN BACK AND NECK AND ABDOMEN, /, WILL GIVE PAIN MEDS PER ORDERS. VSS, BED LOW AND LOCKED, CALL LIGHT IN REACH. WILL CPOC.
--- NOTE | 2017-06-09 23:00 | NUR ---
REASSESSMENT COMPLETE PER FLOW SHEET, PLEASE SEE FOR DETAILS. NO CHANGES FROM PREVIOUS ASSESSMENT TO NOTE. VSS, BED LOW AND LOCKED, CALL LIGHT IN REACH. WILL CPOC.
[2017-06-10] VITALS (24 sets, daily range): BP systolic 91–141; BP diastolic 62–92
--- NOTE | 2017-06-10 01:00 | NUR ---
PATIENT HAD REQUESTED PAIN MEDS, THESE WERE PROVIDED. NO OTHER NEEDS ATT. BED LOW AND LOCKED, CALL LIGHT IN REACH. VSS, WILL CPOC.
--- NOTE | 2017-06-10 03:00 | NUR ---
REASSESSMENT COMPLETE PER FLOW SHEET, PLEASE SEE FOR DETAILS. DENIES NEEDS ATT. VSS, BED LOW AND LOCKED, CALL LIGHT IN REACH. WILL CPOC.
[2017-06-10 04:24] LABS: BASOPHILS 0 % (0-2); EOSINOPHILS 0 % (0-7); HEMATOCRIT 41.2 % (36.0-48.0); HEMOGLOBIN 13.1 g/dL (12-16); IMMATURE GRANULOCYTES 0.3 % (0-5); LYMPHOCYTES 8.5 % (15-50); MCHC 31.8 g/dL (31.0-37.0); MEAN PLATELET VOLUME 11.6 fL (7.4-10.4); MONOCYTES 7.1 % (2-11); NEUTROPHILS 84.1 % (40-80); PLATELET COUNT 329 10x3/uL (130-400); RBC 4.68 10x6/uL (4.00-5.40); RDW 16.5 % (11.5-14.5)
[2017-06-10 04:33] LABS: CALCIUM 9.2 mg/dL (8.5-10.1); CARBON DIOXIDE 34.8 mmol/L (21.0-32.0); CREATININE - SERUM 1.1 mg/dL (0.6-1.3)
[2017-06-10 04:42] LABS: WBC 15.9 10x3/uL (4.8-10.8)
[2017-06-10 04:43] LABS: MAGNESIUM - SERUM 2.3 mg/dL (1.8-2.4)
[2017-06-10 04:44] LABS: POTASSIUM - SERUM 2.8 mmol/L (3.5-5.1)
--- NOTE | 2017-06-10 05:00 | NUR ---
RESTING, NO S&S DITRESS NOTED. VSS, BED LOW AND LOCKED, CALL LIGHT IN REACH. WILL CPOC.
[2017-06-10 13:43] LABS: AMYLASE - SERUM 132 U/L (25-115); LIPASE 52 U/L (73-393)
--- NOTE | 2017-06-10 15:00 | NUR ---
UP TO CHAIR WITH ASSISTANCE, BEARS WEIGHT WELL, BALANCE ASSISTANCE AND LINE MANIPULATION ONLY.
--- NOTE | 2017-06-10 17:00 | NUR ---
RETURNED BACK TO BED WITH ASSISTANCE OF TWO NURSES FOR BALANCE AND LINE MANIPULATION
--- NOTE | 2017-06-10 19:00 | NUR ---
REPORT RECIEVED SHIFT ASSESSMENT COMPLETE, PLEASE SEE FLOW SHEET FOR DETAILS. C/O PAIN 10/10 BACK/NECK, ACHING, INFORMED WOULD GIVE PAIN MEDS PER ORDERS. ASKED TO BE SAT UP MORE TO COUGH AND EXPECTORATE MUCUS, ASSISTED WITH THIS. VSS, BED LOW AND LOCKED, CALL LIGHT IN REACH. WILL CPOC.
--- NOTE | 2017-06-10 21:00 | NUR ---
RESTING, BIPAP ON ATT. NO S&S ACUTE DISTRESS NOTED. BED LOW AND LOCKED, CALL LIGHT IN REACH. VSS, WILL CPOC.
--- NOTE | 2017-06-10 22:30 | NUR ---
PT COMPLAINED OF ABD PAIN AND NASAL CONGESTIONSD AGAIN, CALLED AND SPOKE TO DR CLEMENT, HE GAVE NEW ORDERS, CALLED AND NOTIFIED [facility] FOR OVERRIDE NEEDS ON PIXIS.
--- NOTE | 2017-06-10 23:00 | NUR ---
REASSESSMENT COMPLETE PER FLOW SHEET, PLEASE SEE FOR DETAILS. C/O PAIN, GIVING PAIN MEDS PER ORDERS. GAVE GAS-X AND DULCOLAX PER ORDERS, WILL MONITOR FOR OUTCOME. DENIES ANY OTHER NEEDS ATT. BED LOW AND LOCKED, CALL LIGHT IN REACH. VSS, WILL CPOC.
[2017-06-11] VITALS (24 sets, daily range): BP systolic 88–122; BP diastolic 67–81
--- NOTE | 2017-06-11 00:17 | NUR ---
REQUESTED PAIN MEDICATION AND ATTEMPTED TO HAVE BM, THIS WAS UNSUCCESSFUL. WILL GIVE PAIN MEDS AND CONTINUE TO MONITOR.
--- NOTE | 2017-06-11 01:00 | NUR ---
RESTING, NO S&S ACUTE DISTRESS NOTED. BED LOW AND LOCKED, CALL LIGHT IN REACH. VSS, WILL CPOC.
--- NOTE | 2017-06-11 03:00 | NUR ---
REASSESSMENT COMPLTE PER FLOW SHEET, PLEASE SEE FOR DETAILS. STILL C/O PAIN IN BACK AND NECK, THIS IS CHRONIC, GIGING PAIN MEDS PER ORDERS. DENIES ANY OTHER NEEDS ATT. BED LOW AND LOCKED, CALL LIGHT IN REACH. VSS, WILL CPOC.
--- NOTE | 2017-06-11 05:00 | NUR ---
RESTING QUIETLY. NO S&S ACUTE DISTRESS NOTED. VSS, BED LOW AND LOCKED, CALL LIGHT IN REACH. WILL CPOC.
[2017-06-11 05:03] LABS: BASOPHILS 0 % (0-2); EOSINOPHILS 0 % (0-7); HEMATOCRIT 40.5 % (36.0-48.0); HEMOGLOBIN 13.1 g/dL (12-16); IMMATURE GRANULOCYTES 0.3 % (0-5); LYMPHOCYTES 6.3 % (15-50); MCH 28.1 pg (26.0-34.0); MCHC 32.3 g/dL (31.0-37.0); MCV 86.9 fL (80.0-100.0); MEAN PLATELET VOLUME 11.8 fL (7.4-10.4); MONOCYTES 6.6 % (2-11); NEUTROPHILS 86.8 % (40-80); PLATELET COUNT 332 10x3/uL (130-400); RBC 4.66 10x6/uL (4.00-5.40); RDW 16.5 % (11.5-14.5); WBC 15.5 10x3/uL (4.8-10.8)
[2017-06-11 05:25] LABS: ANION GAP 11.2 mmol/L (8-16); CALCIUM 8.9 mg/dL (8.5-10.1); CARBON DIOXIDE 32.1 mmol/L (21.0-32.0); CREATININE - SERUM 1.2 mg/dL (0.6-1.3); MAGNESIUM - SERUM 2.1 mg/dL (1.8-2.4); POTASSIUM - SERUM 3.3 mmol/L (3.5-5.1)
--- NOTE | 2017-06-11 11:00 | NUR ---
UP TO CHAIR WITH ONE NURSE AND ONE PHYSICAL THERAPIST
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
--- NOTE | 2017-06-11 19:00 | NUR ---
REPORT RECIEVED, SHIFT ASSESSMENT COMPLETE, PLEASE SEE FLOW SHEET FOR DETAILS. SITTING UP IN BED AND EATING, FINNISHED NOW, CLEARED TABLE. ATE APPROX 50% OF SANDWICH AND PUDDING, NO SOUP. OVERALL 35% ENTIRE MEAL EATEN. OXYMIZER ON ATT. SPO2 92%. VSS, BED LOW AND LOCKED CALL LIGHT IN REACH. WILL COPC.
--- NOTE | 2017-06-11 21:00 | NUR ---
RESTING, NO S&S ACUTE DISTRESS NOTED. VSS, BED LOW AND LOCKED, CALL LIGHT IN REACH. WILL CPOC.
--- NOTE | 2017-06-11 22:55 | NUR ---
REASSESSMENT COMPLETE PER FLOW SHEET, PLEASE SEE FOR DETAILS. NOW ON BIPAP, NO OTHER SIGNIFICANT CHANGES TO NOTE. ASKED FOR A DRINK, ASSISTED WITH MASK REMOVAL AND APPLICATION FOR DRINKING. NO OTHER NEEDS ATT. GIVING PAIN MEDS PER ORDERS AND KEEPING PATIENT INFORMED. BED LOW AND LOCKED, CALL LIGHT IN REACH. VSS, WILL CPOC.
[2017-06-12] VITALS (24 sets, daily range): BP systolic 91–128; BP diastolic 60–87
--- NOTE | 2017-06-12 00:44 | NUR ---
C\O PAIN, 04/04, GAVE PAIN MEDS PER ORDERS. NO OTHER NEEDS ATT. BED LOW AND LOCKED, CALL LIGHT IN REACH. VSS, WILL CPOC.
--- NOTE | 2017-06-12 02:36 | NUR ---
REASSESSMENT COMPLETE PER FLOW SHEET, PLEASE SEE FOR DETAILS. DENIES PAIN/NEEDS ATT. VSS, BED LOW AND LOCKED, CALL LIGHT IN REACH. WILL CPOC.
--- NOTE | 2017-06-12 05:00 | NUR ---
DENIES NEEDS ATT, PAIN UNDER CONTROL ATT. BED LOW AND LOCKED, CALL LIGHT IN REACH. VSS, WILL CPOC.
[2017-06-12 05:22] LABS: BASOPHILS 0 % (0-2); EOSINOPHILS 0 % (0-7); HEMATOCRIT 41.2 % (36.0-48.0); HEMOGLOBIN 13.2 g/dL (12-16); IMMATURE GRANULOCYTES 0.3 % (0-5); MCH 27.6 pg (26.0-34.0); MCV 86.2 fL (80.0-100.0); MEAN PLATELET VOLUME 11.5 fL (7.4-10.4); MONOCYTES 9.3 % (2-11); NEUTROPHILS 82.4 % (40-80); PLATELET COUNT 298 10x3/uL (130-400); RBC 4.78 10x6/uL (4.00-5.40); RDW 16.6 % (11.5-14.5); WBC 12.8 10x3/uL (4.8-10.8)
[2017-06-12 05:42] LABS: ANION GAP 11.6 mmol/L (8-16); CARBON DIOXIDE 30.6 mmol/L (21.0-32.0); MAGNESIUM - SERUM 2.1 mg/dL (1.8-2.4); POTASSIUM - SERUM 3.2 mmol/L (3.5-5.1)
--- NOTE | 2017-06-12 10:08 | NUR ---
Nutrition follow-up: Diet: low sodium PO intake ~50% of meals Labs reviewed Wt: 200# Pt with distended abdomen and decreased appetite. RDN following.
--- NOTE | 2017-06-12 12:52 | NUR ---
PT SITTING IN CHAIR. REPORTS PAIN 9/10 ON HER BACK. NORCO 10MG TABLET GIVEN FOR PAIN. O2 SAT 89%, RR 15. SINUS RHYTHM 94 ON CUT PRESS OPERATOR. WILL CONTINUE TO MONITOR.
--- NOTE | 2017-06-12 15:12 | NUR ---
PT RESTING COMFORTABLY IN BED. REASSESSMENT COMPLITED. O2 SAT 96% ON 9L O2 VIA OXYMIZER. PT REPOSITIONED SELF IN BED. REFUSED PILLOW UNDER ONE SIDE. ENCOURAGED PT TO CHANGE POSITON FREQUENTLY TO REDUCE RISK OF PRESSURE SORES.
--- NOTE | 2017-06-12 19:00 | NUR ---
REPORT RECEIVED AND ASSESSMENT COMPLETED. SEE FLOWSHEET FOR FULL DETAILS. PT O2 SAT 94% AT THIS TIME ON 9L OXYMISER. WILL SWAP TO BIPAP TO SLEEP PER ORDERS.
--- NOTE | 2017-06-12 21:00 | NUR ---
2100 MEDS GIVEN. NO OTHER CHANGES IN STATUS AT THIS TIME. WILL CONTINUE TO MONITOR
--- NOTE | 2017-06-12 23:19 | NUR ---
REASSESSMENT COMPLETED. SEE FLOWSHEET FOR FULL DETAILS. NO CHANGES IN STATUS AT THIS TIME VSS. WILL CONTINUE TO MONITOR
[2017-06-13] VITALS (24 sets, daily range): BP systolic 108–146; BP diastolic 62–97
--- NOTE | 2017-06-13 01:00 | NUR ---
ADJUSTED PT BIPAP MASK FOR COMFORT. PT STILL RESTING THOUGH DID REQUEST PRN PAIN MEDICATION. WILL ADMINISTER AND MONITOR
--- NOTE | 2017-06-13 03:00 | NUR ---
REASSESSMENT COMPLETED. SEE FLOWSHEET FOR FULL DETAILS. RADIOLOGY IN ROOM FOR X RAY. NO OTHER CHANGES IN STATUS AT THIS TIME
[2017-06-13 03:49] LABS: BASOPHILS 0 % (0-2); EOSINOPHILS 0 % (0-7); HEMATOCRIT 42.8 % (36.0-48.0); IMMATURE GRANULOCYTES 0.4 % (0-5); LYMPHOCYTES 8.9 % (15-50); MCH 28.1 pg (26.0-34.0); MCHC 32.7 g/dL (31.0-37.0); MCV 85.8 fL (80.0-100.0); MEAN PLATELET VOLUME 11.3 fL (7.4-10.4); MONOCYTES 7.1 % (2-11); NEUTROPHILS 83.6 % (40-80); PLATELET COUNT 288 10x3/uL (130-400); RBC 4.99 10x6/uL (4.00-5.40); RDW 16.3 % (11.5-14.5); WBC 14.6 10x3/uL (4.8-10.8)
[2017-06-13 04:15] LABS: ANION GAP 10.6 mmol/L (8-16); CALCIUM 8.6 mg/dL (8.5-10.1); CARBON DIOXIDE 30.3 mmol/L (21.0-32.0); MAGNESIUM - SERUM 1.9 mg/dL (1.8-2.4)
[2017-06-13 04:29] LABS: POTASSIUM - SERUM 2.9 mmol/L (3.5-5.1)
--- NOTE | 2017-06-13 05:05 | NUR ---
PT K+ 2.9. WILL BEGIN ELECTROLYTE PROTOCOL PER ORDERS
--- NOTE | 2017-06-13 07:15 | NUR ---
REPORT RECIEVED FROM NET MAKER NURSE. PT RESTING IN BED QUIETLY. VSS. FULL ASSESSMENT COMPLETE PER FLOWSHEET. REFER FOR DETAILS. PT DENIES NEEDS AT THIS TIME. WILL CONT TO ASSESS.
--- NOTE | 2017-06-13 08:00 | NUR ---
ASSISTED PT TO RECLINER. MOD ASSIST REQUIRED. DYSPNEA ON EXERTION. HIGH FLOW NC AT 9L. WILL MONITOR. CALL LIGHT PLACED IN REACH ALONG WITH PERSONAL BELONGINGS.
--- NOTE | 2017-06-13 09:30 | NUR ---
PT WALKING PT WITH WALKER AT THIS TIME. SHORT WALK TOLERATED AND ASSISTED BACK TO RECLINER.
--- NOTE | 2017-06-13 11:00 | NUR ---
REASSESSMENT COMPLETE. NO CHANGES NOTED.
--- NOTE | 2017-06-13 11:40 | NUR ---
NORCO ADMINSTERED FOR CHRONIC BACK PAIN. WILL REASSESS PAIN.
--- NOTE | 2017-06-13 12:11 | NUR ---
* Is the patient Alert and Oriented? Yes 0 * How many steps to enter\exit or inside your home? Ramp 0 * PCP Dr. Pierson 0 * Pharmacy [facility] 0 * Preadmission Environment Home with Family 0 * ADLs Partial Dependent 0 * Partial ADLs (Assistance needed) Ambulation Bathing Dressing Toileting 0 * Equipment Bedside Commode Cane Nebulizer Oxygen Rolling Walker Shower Chair Wheelchair 0 * List name and contact numbers for known caregivers / representatives who currently or will assist patient after discharge: POA/SO - Bernardo Vega [phone] 0 * Additional services required to return to the preadmission environment? Yes 0 * Can the patient safely return to the preadmission environment? Yes 0 * Has this patient been hospitalized within the prior 30 days at any hospital? No Patient Name: FLORINDA KANG Admission Status: ER Accout number: [id number] Admission Date: 06-07-2017 : 1955 Admission Diagnosis:SHORTNESS OF BREATH Attending: BILLY MEDEIROS Current LOS: 6 Planned Disposition: Home Primary Insurance: MEDICAID [place] Discharge Planning Comments: CM met with patient to assess dc plans/needs. Patient states she lives at home with her significant other of 30 years, Bernardo Vega, who is also her POA for healthcare. She reports she has had home health services in the past but unable to recall which agency. She states she has home services through [facility], provided by Bernardo, for 2 hours a day 5 days per week. She states she primarily uses a walker for mobility but also has a cane & WC. At ca, she plans to return home with significant other. She is agreeable to home health referral if indicated. CM will follow & assist as needed. Door Opener: Sangeetha Blanco
--- NOTE | 2017-06-13 14:00 | NUR ---
PT REQUESTED TO GO BACK TO BED. STATED HER BOTTOM WAS SORE FROM SITTING IN THE CHAIR. MOD ASSIST REQUIRED BACK TO BED. CALL LIGHT PLACED IN REACH.
--- NOTE | 2017-06-13 15:53 | EC ---
PATIENT:FLORINDA KANG DATE OF SERVICE: 06/07/17 SEX: F MEDICAL RECORD: [id number] DATE OF : [birth year] LOCATION:[facility] D230 AGE OF PATIENT: 62 ADMISSION DATE: 06/07/17 REFERRING PHYSICIAN: INTERPRETING PHYSICIAN: HAI GIRALDO MD ECHOCARDIOGRAM REPORT ECHO CHARGES 4 ECHO COMPLETE CLINICAL DIAGNOSIS: CHF ECHOCARDIOGRAPHIC MEASUREMENTS (adult normal given) AC root (d.<3.7cm) 3.0 cm LV Septum d (<1.2 cm> 1.4 cm Valve Excursion 1.4 cm LV Septum (systole) 1.7 cm Left Atria (s.<4.0cm> 3.3 cm LVPW d(<1.2cm) 1.4 cm RV (d.<2.3cm) 3.2 cm LVPW (sytole) 1.6 cm LV diastole(<5.6CM) 4.7 cm MV E-F(>70mm/sec) cm LV systole 3.2 cm LVOT Diameter 1.8 cm MV exc.(>10mm) 1.1 cm Est.ejection fraction (50-75%) % Pericardial Effusion N DOPPLER: LVIT cm/sec A 55.0 cm/sec E 88.0 cm/sec LA cm/sec RVSP 27 mmHg LVOT 108 cm/sec AOP1/2T m/s Asc. Ao 169 cm/sec RVOT cm/sec RA cm/sec PA cm/sec AV Gradient Peak 11.42mmHg AV Mean 6.24 mmHg AV Area 1.7 cm MV Gradient Peak 5.05 mmHg MV Mean 2.26 mmHg MV Area cm COMMENTS: Rn Radiation Oncology: Sariah WETZEL Principal Embedded Software Engineer: 4 Dr. Giraldo TAPE# PACS DATE OF SERVICE: 06/08/2017 PROCEDURES: Transthoracic echocardiogram. FINDINGS: 1. This is a technically difficult study. The images are more qualitative than quantitative. 2. The left ventricle is grossly normal with a normal ejection fraction. No obvious wall motion abnormalities. Given suggestions of hyperdynamic function, overall ejection fraction appears to be in the 65% range. ECHOCARDIOGRAM REPORT [id number] FLORINDA KANG 3. The right ventricle appears to be mildly dilated. 4. The left atrium is normal size and normal function. 5. The aortic valve appears to be grossly normal. 6. The mitral valve appears to be grossly normal. 7. The tricuspid valve has mild tricuspid regurgitation. The RVSP could not be calculated. There was no good envelope. 8. The pericardium is normal. 9. The right atrium appears to be normal size, normal function. CONCLUSIONS: The patient has evidence of hyperdynamic state, otherwise a grossly normal echocardiogram. TRANSINT:[id number] Voice Confirmation ID: [id number] DOCUMENT ID: [id number] 06/13/2017 Edited to correct date of service, dm. HAI GIRALDO MD at 1553 CC: [id number] DICTATION DATE: 06/09/17 0747 NEWS REEL CAMERAMAN: 06/09/17 1235 [facility] IN [facility] [address] [place] [address]
--- NOTE | 2017-06-13 16:00 | NUR ---
FAMILY AT BEDSIDE. UPDATE PROVIDED.
--- NOTE | 2017-06-13 16:50 | NUR ---
NORCO ADMINSTERED FOR CHRONIC BACK PAIN. WILL REASSESS PAIN.
--- NOTE | 2017-06-13 19:20 | NUR ---
REPORT RECIEVED.A SSESSMENT COMPLETE PER FLOW SHEET. VSS. NO NEW CHANGES. AT THIS TIME. PT REQUEST 2100 MEDS TO BE ADM NOW. DENIES FURTHER NEEDS. WILL CONTINUE TO MONITOR
--- NOTE | 2017-06-13 21:50 | NUR ---
PIV INFULTRATED RESITED TO L AC FLUSHES WITHOUT DIFFICULTY. NO NEW CHANGES
--- NOTE | 2017-06-13 23:30 | NUR ---
REASSESSMNET COMPLETE PER FLOW SHEET. VSS. NON EW CHANGES. PT SLEEPING COMFORTABLY . WILL CONTINUE TO MONITOR
[2017-06-14] VITALS (14 sets, daily range): BP systolic 98–126; BP diastolic 71–90
--- NOTE | 2017-06-14 03:10 | NUR ---
REASSESSMENT COMPLETE PER FLOW SHEET. VSS NO NEW CHANGE. RADIOLOGY AT BEDSIDE. WILL COTNINUE TO MONITOR
[2017-06-14 04:13] LABS: BASOPHILS 0 % (0-2); EOSINOPHILS 0 % (0-7); HEMATOCRIT 43.6 % (36.0-48.0); HEMOGLOBIN 14.2 g/dL (12-16); IMMATURE GRANULOCYTES 0.3 % (0-5); LYMPHOCYTES 7.4 % (15-50); MCHC 32.6 g/dL (31.0-37.0); MEAN PLATELET VOLUME 11.7 fL (7.4-10.4); MONOCYTES 4.5 % (2-11); NEUTROPHILS 87.8 % (40-80); PLATELET COUNT 272 10x3/uL (130-400); RBC 5.07 10x6/uL (4.00-5.40); RDW 16.4 % (11.5-14.5); WBC 14.3 10x3/uL (4.8-10.8)
[2017-06-14 04:31] LABS: ANION GAP 10.2 mmol/L (8-16); CALCIUM 8.5 mg/dL (8.5-10.1); CARBON DIOXIDE 31.2 mmol/L (21.0-32.0); CREATININE - SERUM 1.1 mg/dL (0.6-1.3); MAGNESIUM - SERUM 1.8 mg/dL (1.8-2.4)
[2017-06-14 04:36] LABS: POTASSIUM - SERUM 3.4 mmol/L (3.5-5.1)
--- NOTE | 2017-06-14 05:18 | NUR ---
PRN NORCO ADM PER REQUEST PAIN 02/02 WILL CONTINUE TO MONITOR
--- NOTE | 2017-06-14 07:00 | NUR ---
REPORT RECIEVED FROM [facility] [employer] HOME NURSE. PT RESTING IN BED QUIETLY. FULL ASSESSMENT COMPLETE PER FLOWSHEET. REFER FOR DETAILS. CALL LIGHT IN REACH. BED IN LOW POSITION. WILL CONT TO ASSESS.
--- NOTE | 2017-06-14 09:05 | NUR ---
NORCO ADMINISTERED PER EMAR FOR CHRONIC NECK AND BACK PAIN. WILL REASSESS.
--- NOTE | 2017-06-14 10:15 | NUR ---
PT HAS STILL NOT HAD BM. DUCCOLAX SUPP ADMINSTERED. WILL CONT TO ASSESS.
--- NOTE | 2017-06-14 11:00 | NUR ---
REASSESSMENT COMPLETE. NO CHANGES NOTED AT THIS TIME.
--- NOTE | 2017-06-14 14:00 | NUR ---
UP WALKING WITH PT USING WALKER. ON 6L HIGH FLOW NC. NO SIGNS OF DISTRESS NOTED WHILE AMBULATING.
--- NOTE | 2017-06-14 15:12 | NUR ---
REPORT CALLED TO [facility] FOR [facility]G FLOOR. WILL TRANSFER PT VIA W/C.
--- NOTE | 2017-06-14 15:38 | NUR ---
RECEIVED PT VIA WHEELCHAIR FROM ICU NURSE RM. PT IS ALERT AND ORIENTED. UP WITH ASSIST. ON OXIMIZER AT 6L. IV SEEN TO LEFT AC. THIS NURSE RESTARTED IV ANTIBIOTICS THAT PT WAS RECEIVING IN ICU. SCDS ARE ON. THIS NURSE TURNED ON SCD MACHINE. BRUISING SEEN TO BILATERAL ARMS. MCDONOUGH CATHETER SEEN WITH YELLOW URINE. WHEEZING HEARD IN BUL AND BLL ON AUSCULTATION. PT IS REQUESTING JUICE AT THIS TIME. WILL GET PT JUICE. WILL CONTINUE TO MONITOR.
--- NOTE | 2017-06-14 17:07 | NUR ---
PT IS CURRENTLY SITTING UP IN BED WITH EYES OPEN RESTING. PT GIVEN NORCO PRN NEEDED FOR BACK PAIN. NO OTHER NEED AT THIS TIME. WILL CONTINUE TO MONITOR.
[2017-06-15 00:13] VITALS: BP 123/75
--- NOTE | 2017-06-15 02:36 | NUR ---
PT IS LAYING IN BED WITH EYES CLOSED, RESPIRATIONS EVEN AND UNLABORED. CALL LIGHT IN REACH, WILL CONTINUE TO MONITOR.
[2017-06-15 06:27] LABS: BASOPHILS 0 % (0-2); EOSINOPHILS 0 % (0-7); HEMATOCRIT 42.7 % (36.0-48.0); HEMOGLOBIN 14.2 g/dL (12-16); IMMATURE GRANULOCYTES 0.7 % (0-5); LYMPHOCYTES 9.9 % (15-50); MCH 28.1 pg (26.0-34.0); MCHC 33.3 g/dL (31.0-37.0); MCV 84.4 fL (80.0-100.0); MEAN PLATELET VOLUME 11.7 fL (7.4-10.4); MONOCYTES 7.5 % (2-11); NEUTROPHILS 81.9 % (40-80); PLATELET COUNT 265 10x3/uL (130-400); RBC 5.06 10x6/uL (4.00-5.40); RDW 16.4 % (11.5-14.5); WBC 16.3 10x3/uL (4.8-10.8)
[2017-06-15 06:33] LABS: ANION GAP 10.3 mmol/L (8-16); CALCIUM 8.4 mg/dL (8.5-10.1); CARBON DIOXIDE 32.1 mmol/L (21.0-32.0); MAGNESIUM - SERUM 1.8 mg/dL (1.8-2.4); PHOSPHOROUS 1.8 mg/dL (2.5-4.9); POTASSIUM - SERUM 3.4 mmol/L (3.5-5.1)
--- NOTE | 2017-06-15 07:26 | NUR ---
AM ROUNDING- RECEIVED REPORT FROM REHEATER NURSE HILLARY. PT IS CURRENTLY SITTING UP IN BED WITH EYES OPEN RESTING. ON 02 AT 6L VIA OXIMIZER. NO MONITOR. IV SEEN TO LEFT AC THAT IS HAS NS RUNNING AT KVO (10CC). MCDONOUGH CATHETER SEEN WITH YELLOW URINE. NO NEED AT THIS CURRENT TIME. WILL CONTINUE TO MONITOR AND CONTINUE WITH PLAN OF CARE.
[2017-06-15 08:14] VITALS: BP 114/72
--- NOTE | 2017-06-15 10:56 | NUR ---
PT GIVEN NORCO PRN NEEDED FOR 10/10 PAIN COMING FROM BACK, CHEST, AND ABDOMEN. PT IS CURRENTLY SITTING UP IN BED WITH EYES OPEN RESTING. WILL CONTINUE TO MONITOR.
[2017-06-15 12:09] VITALS: BP 113/69
--- NOTE | 2017-06-15 13:40 | NUR ---
Nutrition follow-up: Diet: low sodium PO intake poor possibly due to constipation Labs reviewed Wt: 187# Pt now assessed with severe malnutrition of acute illness R/T CHF AEB ~8% weight loss in 3 days (203# on admit date 06/07 -> now 187#); < 50% intake of estimated energy needs for > 7 days. Physician and nursing aware of constipation. Will continue to provide food choices with selective menus and honor food preferences. RDN will order Ensure BID. Following.
[2017-06-15 16:05] VITALS: BP 116/65
--- NOTE | 2017-06-15 16:25 | NUR ---
ANGE PERRY CAME TO INFORM ME THAT PTS 02 SAT IS 84% ON 5L VIA OXIMIZER. ANGE PERRY STATES SHE TOLD VIPUL WITH RESP. THIS NURSE WENT AND CHECKED ON PT WHOSE O2 SAT WAS 82%. VIPUL WAS INFORMED AGAIN AND WENT TO CHECK ON PT. VIPUL STATES HE TURNED PTS 02 VIA OXIMIZER TO 15L (FLUSH). ANGE PERRY REPORTS PTS O2 SAT IS 90%. WILL CONTINUE TO MONITOR.
--- NOTE | 2017-06-15 16:45 | NUR ---
VIPUL WITH RESP STATES PTS 02 SAT IS 94% ON 15L VIA OXIMIZER. VIPUL STATES HE WILL START TAPERING PT DOWN. VIPUL WITH RESP STATES HE DID INFORM DR. SANDOVAL OF THIS AND IF PT CONTINUES TO SAT LOW WILL PLACE ON VAPOTHERM. WILL CONTINUE TO MONITOR.
--- NOTE | 2017-06-15 18:20 | NUR ---
PT IS CURRENTLY SITTING UP IN CHAIR WAITING TO GO FOR CTA ORDERED. PT IS AWARE TO NOT EAT ANYTHING UNTIL CTA IS DONE. NO NEED AT THIS CURRENT TIME. WILL CONTINUE TO MONITOR.
[2017-06-15 20:18] VITALS: BP 126/78
[2017-06-16 00:27] VITALS: BP 136/77
--- NOTE | 2017-06-16 01:42 | NUR ---
PT LAYING IN BED, ALERT AND ORIENTED. DENIES NEEDS AT THIS TIME. RESPIRATIONS EVEN AND UNLABORED, CALL LIGHT IN REACH. WILL CONTINUE PLAN OF CARE.
[2017-06-16 04:50] VITALS: BP 111/69
--- NOTE | 2017-06-16 04:56 | NUR ---
GARMENT SEWING MACHINE OPERATOR AT BEDSIDE, CALL LIGHT IN REACH. WILL CONTINUE WITH PLAN OF CARE.
[2017-06-16 06:35] LABS: BASOPHILS 0 % (0-2); EOSINOPHILS 0.3 % (0-7); HEMATOCRIT 43.9 % (36.0-48.0); HEMOGLOBIN 14.4 g/dL (12-16); IMMATURE GRANULOCYTES 1.1 % (0-5); LYMPHOCYTES 17.5 % (15-50); MCH 28.1 pg (26.0-34.0); MCHC 32.8 g/dL (31.0-37.0); MCV 85.6 fL (80.0-100.0); MEAN PLATELET VOLUME 11.2 fL (7.4-10.4); MONOCYTES 8.8 % (2-11); NEUTROPHILS 72.3 % (40-80); PLATELET COUNT 254 10x3/uL (130-400); RBC 5.13 10x6/uL (4.00-5.40); RDW 16.9 % (11.5-14.5); WBC 15.7 10x3/uL (4.8-10.8)
[2017-06-16 07:06] LABS: ANION GAP 10.1 mmol/L (8-16); CALCIUM 8.5 mg/dL (8.5-10.1); CARBON DIOXIDE 31.4 mmol/L (21.0-32.0); POTASSIUM - SERUM 3.5 mmol/L (3.5-5.1)
--- NOTE | 2017-06-16 07:30 | NUR ---
AM ROUNDING- RECEIVED REPORT FROM ROUTER TENDER NURSE HILLARY. PT IS CURRENTLY SITTING UP IN BED WITH EYES OPEN RESTING. ON OXIMIZER AT 10L. NO MONITOR. IV SEEN TO LEFT AC THAT IS CURRENTLY SALINE LOCKED. MCDONOUGH CATHETER SEEN. NO NEED AT THIS CURRENT TIME. PT IS REQUESTING A SHOWER TODAY. WILL LET SALES BROKER KNOW. WILL CONTINUE TO MONITOR AND CONTINUE WITH PLAN OF CARE.
[2017-06-16 08:16] VITALS: BP 121/69
--- NOTE | 2017-06-16 09:55 | NUR ---
ENEMA GIVEN TO PT ORDERED. PT IS SITTING ON BEDSIDE COMMODE NOW. WILL CONTINUE TO MONITOR.
--- NOTE | 2017-06-16 12:41 | NUR ---
BLISTER RUST ERADICATOR INFORMS ME THAT PT HAS HAD BM TODAY.
[2017-06-16 14:12] VITALS: BP 116/78
[2017-06-16 15:20] VITALS: BP 124/81
--- NOTE | 2017-06-16 16:23 | NUR ---
PT IS CURRENTLY SITTING UP IN BED WITH EYES OPEN RESTING. PT DENIES ANY NEED AT THIS TIME. WILL CONTINUE TO MONITOR.
--- NOTE | 2017-06-16 18:14 | NUR ---
PT IS CURRENTLY SITTING UP IN BED WITH EYES OPEN RESTING. PT STATES SHE THINKS HER IV IS OUT. THIS NURSE ATTEMPTS TO FLUSH IV WITH NO SUCCESS. WILL ATTEMPT TO RESITE PT.
--- NOTE | 2017-06-16 18:40 | NUR ---
ATTEMPTED TO SITE PT WITH IV CATHETER X2 STICKS THAT WERE NOT SUCCESSFUL. PT IS UPSET IN TEARS BECAUSE I DID NOT BRING HER A PAIN PILL. I INFORMED PT THAT I WAS NOT AWARE THAT SHE WANTED A PAIN PILL. PT STATES SHE TOLD ME. I INFORMED PT THAT SHE DID NOT INFORM ME SHE MAY HAVE INFORMED ANGE PHILIPPE BUT NOT ME. I INFORMED PT THAT THE LAST TIME WE TALKED ABOUT PAIN MEDICAION IS WHEN I GAVE HER ONE PRIOR ON SHIFT. I INFORMED PT THAT PAIN MEDICATION ORDERED PRN IS NEEDED AND SHE HAS TO TELL ME. PT STATES SHE NEEDS HER PAIN MEDICAION EVERY 4 HOURS. I INFORMED PT SHE CAN HAVE HER PAIN MEDICATION BUT HAS TO ASK THE NURSE WHEN NEEDED IT DUE TO IT BEING PRN. WILL PASS THIS ALONG IN REPORT TO OPERATIONS DIRECTOR NURSE.
--- NOTE | 2017-06-16 19:30 | NUR ---
RECEIVED REPORT, WILL ASSUME CARE OF PT, SITTING ON SIDE OF BED, DENIES ANY NEEDS AT THIS TIME, BED IS LOW, SRX2, CALL LIGHT IN REACH, WILL CONTINUE PLAN OF CARE
[2017-06-16 21:16] VITALS: BP 107/65
--- NOTE | 2017-06-16 22:43 | NUR ---
COMPLAINS OF BACK PAIN, GAVE NORCO ORDER
[2017-06-17 00:23] VITALS: BP 110/69
--- NOTE | 2017-06-17 02:52 | NUR ---
PT RESTING COMFORTABLY, NO NEEDS AT THIS TIME. CONTINUE TO MONITOR CLOSELY.
--- NOTE | 2017-06-17 02:56 | NUR ---
PT SLEEPING, SRX2, CALL LIGHT IN REACH, WILL CONTINUE PLAN OF CARE
--- NOTE | 2017-06-17 03:23 | NUR ---
COMPLAINS OF BACK PAIN-9, GAVE NORCO ORDER
[2017-06-17 05:21] VITALS: BP 101/70
--- NOTE | 2017-06-17 07:00 | NUR ---
RECEIVED REPORT. ASSUMED CARE OF PATIENT. CALL LIGHT WITHIN REACH. PATIENT SITTING UP IN BED WITH EYES OPEN. OXIMIZER PATENT AT 10L/MIN. NO DISTRESS.
--- NOTE | 2017-06-17 07:42 | NUR ---
MEDICATED FOR PAIN AT THIS TIME. NO DISTRESS. PATIENT REQUESTING FOR OXIMIZER TO BE TURNED DOWN, SPOKE WITH RESPIRATORY AND [place] STATES THEY ARE TRYING TO WEAN PATIENT BUT HAS NOT BEEN SUCCESSFUL.
[2017-06-17 08:30] VITALS: BP 112/70
--- NOTE | 2017-06-17 10:30 | NUR ---
OOB AMBULATING WITH PHYSICAL THERAPY. TOLERATING THERAPY WELL. NO DISTRESS.
--- NOTE | 2017-06-17 11:33 | NUR ---
MEDICATED FOR PAIN AT THIS TIME. NO DISTRESS.
[2017-06-17 11:47] VITALS: BP 136/70
--- NOTE | 2017-06-17 15:52 | NUR ---
MEDICATED FOR PAIN AT THIS TIME. NO DISTRESS. CASE MANAGEMENT AT BEDSIDE DISCUSSING OXYGEN CONCENTRATORS WITH PATIENT.
--- NOTE | 2017-06-17 18:22 | NUR ---
LATE ENTRY 1600 PATIENT W/ OXYGEN AT 9/L VIA OXYMIZER. PLANNING TO WEAN DOWN IF POSSIBLE. SHE HAS [facility] FOR HER [facility]. TC TO [facility]. RECEIVED CALLBACK FROM NELSON. DISCUSSED PATIENT NEED. HE DOES NOT HAVE A CONCENTRATOR THAT WILL GO UP TO 10L. WOULD HAVE TO ORDER. PATIENT HAS SMALL PORTABLE O2 TANKS BACKUP. WOULD LIKE LARGER TANKS. DOES NOT FEEL HE COULD HAVE THE CONCENTRATOR UNTIL MONDAY. CM MEET WITH THE PATIENT. WILL FOLLOW. RECEIVED TC FROM KAREL. [facility] WOULD HAVE TO ORDER THE CONCETRATOR. WOULD NOT BE AVAILABLE UNTIL MONDAY. WILL DISCUSS WITH DR DUNAWAY.
--- NOTE | 2017-06-17 18:31 | NUR ---
PATIENT WENT TO OR LATE THIS PM. WILL HAVE HD POST PROCEDURE. HAS NOT HAD HD OF THIS TIME.
--- NOTE | 2017-06-17 18:37 | NUR ---
PATIENT AMBULATING IN ROOM AT THIS TIME. NO DISTRESS. DENIES NEEDS.
--- NOTE | 2017-06-17 19:30 | NUR ---
REPORT RECIEVED FROM OFF GOING NURSE. PT RESTING IN BED. NO DISTRESS. O2 @ 3.5L/NC. SEE ASSESSMENT. CPOC. CALL LIGHT IN REACH.
[2017-06-17 20:00] VITALS: BP 115/70
--- NOTE | 2017-06-17 20:31 | NUR ---
BEDTIME MEDS GIVEN. PT REQUESTED SLEEPING PILL AND PAIN PILL, BOTH PROVIDED.
--- NOTE | 2017-06-18 01:30 | NUR ---
PT C/O GENERALIZED PAIN. MEDICATED WITH PAIN PILL X 1. CPOC.
[2017-06-18 04:00] VITALS: BP 102/66
--- NOTE | 2017-06-18 05:56 | NUR ---
AWAKE WITH C/O PAIN/DISCOMFORT. PAIN PILL GIVEN. WILL MONITOR.
[2017-06-18 07:54] VITALS: BP 99/54
--- NOTE | 2017-06-18 09:30 | NUR ---
HERE FOR ROUNDS. NEW ORDER TO CONTINUE NORCO IT FELL OFF MAR THIS AM AFTER 10 CONSECUTIVE DAYS. IF CASES MANAGEMENT IS ABLE TO GET PATIENT A SECOND PORTABLE O2 TANK OR CONCENTRATOR, CALL FOR DISCHARGE INSTRUCTION.
--- NOTE | 2017-06-18 09:55 | NUR ---
MEDICATED FOR PAIN AT THIS TIME. PATIENT SITTING TO SIDE OF BED. NO DISTRESS. CALL LIGHT WITHIN REACH.
[2017-06-18 12:46] VITALS: BP 107/63
--- NOTE | 2017-06-18 14:33 | NUR ---
MEDICATED FOR PAIN AT THIS TIME. NO DISTRESS.
[2017-06-18] MEDS ORDERED: ATROVENT 0.02%2.5 ML UPD (15:45)
[2017-06-18] MEDS ORDERED: XOPENEX 0.0.63 MG/3 UPD (15:46)
[2017-06-18] MEDS ORDERED: PREDNISONE20 MG PO (15:50)
[2017-06-18] MEDS ORDERED: LASIX40 MG PO (15:51)
[2017-06-18 16:11] VITALS: BP 86/46
--- NOTE | 2017-06-18 17:25 | NUR ---
MCDONOUGH CATHETER REMOVED AT THIS TIME PATIENT IS BEING DISCHARGED TO HOME. NO DISTRESS. SITTING UP IN BED AT THIS TIME.
--- NOTE | 2017-06-18 18:40 | NUR ---
DISCHARGE INSTRUCTIONS PROVIDED TO PATIENT. PATIENT HAD NO QUESTIONS FOR THIS NURSE. PATIENT HAS MALE FRIEND HERE TO TAKE HER HOME.
--- NOTE | 2017-06-18 18:45 | NUR ---
PATIENT LEFT UNIT VIA WHEELCHAIR WITH ALL PERSONAL BELONGINGS AND NEW OXYGEN TANK. PATIENT LEFT UNIT IN NO DISTRESS. PATIENT DISCHARGED TO HOME.
--- NOTE | 2017-06-18 19:22 | NUR ---
LATE ENTRY TC THIS AM TO [facility]. SPOKE WITH NELSON. PATIENT HAS BEEN WEANED TO 3.5 L[address]ERS [address]NULA. DR MEDEIROS STATED PATIENT COULD BE DISCHARGED TO HOME IF HER DME PROVIDER COULD BRING AN EXTRA O2 TANK OR LARGER TANK. [facility] TRANSFERED NELSON TO THE PATIENT TO VERIFY WHAT SHE HAD AT HOME. 1500 NELSON APPEARED ONSITE WITH O2 TANK. HE STATED HE NEEDED A MD ORDER FOR INCREASE IN O2 NEED. HE STATES PATIENT HAD BEEN ON OXYGEN AT NIGHT ONLY. PATIENT IS REQUIRING CONTINOUS OXYGEN HAS BEEN ON OXYMIZER AT 10 LITERS IN THE LAST 24 HRS. AMBAR CALLED TO SPEAK WITH DR DUNAWAY THE LABOR DELIVERY RN. HE ENTERED A NEW ORDER . DR MEDEIROS TO WRITE DISCHARGE ORDERS. [facility] FAXED NEW CLINICAL TO [facility]. FAXED H/P, PULMONARY CONSULT, CARDIO CONSULT AND DISCHARGE SUMMARY. FAXED MD ORDERS FOR OXYGEN. PATIENT DID NOT FEEL THAT SHE NEEDED HOME HEALTH AT DISCHARGE.
--- NOTE | 2017-06-22 14:06 | CN ---
PATIENT NAME:FLORINDA LEE MEDICAL RECORD: [id number] : 57 LOCATION:D.M2 D.2109 ADMIT DATE: 06/07/17 ACCOUNT: [id number] CONSULTING PHYSICIAN: RADHA DUNAWAY MD REFERRING PHYSICIAN: BILLY MEDEIROS MD DATE OF CONSULTATION: 06/08/2017 CONSULT REQUESTING PHYSICIAN: Billy Medeiros MD REASON FOR CONSULTATION: Acute hypoxic hypercapnic respiratory failure. HISTORY OF PRESENT ILLNESS: Ms. Lee is a 62-year-old female who is very lethargic and sleepy. The history was taken by talking to the patient's . According to the , she is going downhill for the last 5-6 months. Yesterday, she was very weak and lethargic, brought into the ER, found out her CO2 is above 100. The patient was put on BiPAP, now she is a bit more awake and alert. Denies any fever and chills. There is cough without much sputum production. She also went into atrial fibrillation and now back into sinus rhythm. She is an ex-smoker. REVIEW OF SYSTEMS: Mainly in the history of present illness. PAST MEDICAL HISTORY: 1. Asthma. 2. Chronic obstructive pulmonary disease. 3. History of traumatic left pneumothorax in the past. 4. Hypothyroidism. 5. Anxiety. 6. Chronic stress. PAST SURGICAL HISTORY: 1. Hysterectomy. 2. Thyroidectomy. 3. She has chest tube placement on the left side in the past. ALLERGIES: She is allergic to CELEBREX and IBUPROFEN. MEDICATIONS: [employer] is reviewed. PERSONAL SOCIAL HISTORY: The patient is . She lives with her . She is an ex-smoker. She is a nondrinker. FAMILY HISTORY: Significant for diabetes. PHYSICAL EXAMINATION: GENERAL: Now, the patient is lying comfortably in the bed. She is not in acute distress. VITAL SIGNS: The blood pressure is 89 to 116/69, pulse is 81, respirations 24, temperature is 97.9, SpO2 is 98% on BiPAP 50% oxygen. Initially, her heart rate was 103 to 125, irregular. HEENT: Conjunctivae are pink, sclerae nonicteric. NECK: Neck is supple. No JVD. CHEST: There are bibasilar crackles and wheeze on forceful expiration. HEART: Rate and rhythm regular. Normal sound. No murmur. ABDOMEN: Abdomen is soft. Bowel sounds present. No hepatosplenomegaly. CONSULT REPORT [id number] FLORINDA LEE RECTAL: Deferred. EXTREMITIES: No cyanosis, no clubbing, no pedal edema. SKIN: The skin is warm, normal turgor. CENTRAL NERVOUS SYSTEM: The patient is awake and alert. There are no obvious cranial nerve abnormalities. The gait was not tested. IMAGING: Chest radiograph, there is a left basal infiltrate with increased interstitial markings. OTHER LABORATORY DATA: CBC: The WBC is 11.2, hemoglobin is 12.7, hematocrit 22.9, and the platelet count 290. Chemistry: Sodium 141, potassium 3.4, chloride 97, bicarbonate is 41.3, BUN is 6, creatinine is 0.8. ABG on admission, the pH was 7.9, pCO2 was 110, pO2 was 102, and bicarbonate 42.9. IMPRESSION: 1. Acute hypoxic hypercapnic respiratory failure. 2. Respiratory acidosis secondary to acute hypoxic hypercapnic respiratory failure. 3. Acute exacerbation of chronic obstructive pulmonary disease. 4. Atrial fibrillation. 5. Left lower lobe pneumonia, most likely community-acquired pneumonia. 6. Leukocytosis. 7. History of left pneumothorax. 8. Chronic narcotic dependence. RECOMMENDATION: Start on Xopenex and ipratropium nebulizer, Brovana, budesonide nebulizer, methylprednisolone IV, Levaquin IV, Rocephin IV. Followup labs and chest radiograph. Check ammonia level. Cardiac workup per Dr. Giraldo. Dr. Medeiros, thank you for involving me in the care of Ms. Lee. TRANSINT:[id number] Voice Confirmation ID: [id number] DOCUMENT ID: [id number] RADHA DUNAWAY MD at 1406 CC: BILLY MEDEIROS MD [id number] DICTATION DATE: 06/08/17 1007 SODDER: 06/08/17 1324 DIS IN 06/18/[address], [facility]
== END 2017-06-18 18:46 | disposition home or self-care (01) | DRG 193 ==
LOC: D.ER 17:39 → D.M2 21:05 → D.ICU 21:05 → D.M2 06-14 15:37
PROVIDERS: Emergency Medicine; Family Medicine; Internal Medicine Pulmonary Disease; ADMIT Family Medicine
PROC: 0T9B70Z Drainage of Bladder with Drainage Device, Via Natural or Artificial Opening (ICD-10-PCS; principal; 2017-06-07)
PROC: 5A09557 Assistance with Respiratory Ventilation, Greater than 96 Consecutive Hours, Continuous Positive Airway Pressure (ICD-10-PCS; 2017-06-08)
DX: J18.9 Pneumonia, unspecified organism (principal); J96.02 Acute respiratory failure with hypercapnia; J96.01 Acute respiratory failure with hypoxia; J44.1 Chronic obstructive pulmonary disease with (acute) exacerbation; E87.2 Acidosis; J98.11 Atelectasis; K56.7 Ileus, unspecified; J44.0 Chronic obstructive pulmonary disease with (acute) lower respiratory infection; I48.0 Paroxysmal atrial fibrillation; E03.9 Hypothyroidism, unspecified; F41.9 Anxiety disorder, unspecified; E87.6 Hypokalemia; K21.9 Gastro-esophageal reflux disease without esophagitis; Z86.73 Personal history of transient ischemic attack (TIA), and cerebral infarction without residual deficits; Z87.891 Personal history of nicotine dependence; K59.00 Constipation, unspecified

== ENCOUNTER → 2017-10-31 08:08 | Outpatient (CLI) | payer MEDICAID ==
[2017-06-09 12:53] VITALS: BMI 27.8
[~2017-10-31 08:08] MED LIST changes: +ATROVENT 0.02%2.5 ML UPD; +LASIX40 MG PO; +PREDNISONE20 MG PO; +XOPENEX 0.0.63 MG/3 UPD
== END | disposition home or self-care (01) ==
LOC: D.RT 10-27 09:00
DX: J44.1 Chronic obstructive pulmonary disease with (acute) exacerbation (principal)

== ENCOUNTER → 2017-12-11 12:20 | Outpatient (CLI) | payer MEDICAID ==
[2017-06-09 12:53] VITALS: BMI 27.8
== END | disposition home or self-care (01) ==
LOC: D.MRI 12:20
DX: M25.561 Pain in right knee (principal)

== ENCOUNTER → 2018-08-01 07:38 | Outpatient (CLI) | payer MEDICAID ==
[2017-06-09 12:53] VITALS: BMI 27.8
== END | disposition home or self-care (01) ==
LOC: D.MRI 07:38
DX: M54.16 Radiculopathy, lumbar region (principal)

== ENCOUNTER → 2020-03-05 10:29 | Outpatient (CLI) | payer MEDICAID ==
[2017-06-09 12:53] VITALS: BMI 27.8
== END | disposition home or self-care (01) ==
LOC: D.RAD 10:29
PROVIDERS: ATTEND Internal Medicine Pulmonary Disease
DX: J44.9 Chronic obstructive pulmonary disease, unspecified (principal)